=== PATIENT | female | born 1970 | race Caucasian/White ===

== ENCOUNTER 2018-05-15 20:04 | Emergency (ER) | payer BC ==
[~2018-05-15 20:04] MED LIST: DIAZ5TAB PO; HYDR-3165 PO
[2018-05-15 20:48] LABS: BASO % 1 % (0-3); EOS # 0.1 x10^3/uL (0.0-0.7); EOS % 2 % (0-3); HEMATOCRIT 47.6 % (36.0-47.0); HEMOGLOBIN 16.6 g/dL (12.0-15.5); LYMPH # 3.3 x10^3/uL (1.0-4.8); LYMPH % 58 % (24-48); MEAN CORPUSCULAR HEMOGLOBIN 31 pg (25-35); MEAN CORPUSCULAR HGB CONC 35 g/dL (31-37); MEAN CORPUSCULAR VOLUME 90 fL (79-100); MONO # 0.4 x10^3/uL (0.0-1.1); MONO % 7 % (0-9); NEUT # 1.8 x10^3uL (1.8-7.7); NEUT % 32 % (31-73); PLATELET COUNT 244 x10^3/uL (140-400); RED BLOOD COUNT 5.32 x10^6/uL (3.50-5.40); RED CELL DISTRIBUTION WIDTH 13.5 % (11.5-14.5); WHITE BLOOD COUNT 5.7 x10^3/uL (4.0-11.0)
--- NOTE | 2018-05-15 20:58 | RAD ---
PQRS Compliance statement: One or more of the following individualized dose reduction techniques were utilized for this examination: 1. Automated exposure control. 2. Adjustment of the mA and/or kV according to patient size. 3. Use of iterative reconstruction technique. Indication:Depressed mental status, weakness TECHNIQUE: CT head without IV contrast COMPARISON:None FINDINGS: No pathologic extra-axial or intra-axial fluid collection. The ventricles and basal cisterns are within normal limits. No acute intracranial bleed. No focal loss of suarez-white differentiation. Orbits are within normal limits. No suspicious calvarial lesion. Visualized paranasal sinuses and mastoid air cells are clear. IMPRESSION: No acute intracranial process on this noncontrast CT. If concern for acute ischemic stroke is high, please consider MRI brain. Electronically signed by: Alberto Rocha DO (05/15/2018 8:53 PM) [facility]
[2018-05-15 21:04] LABS: CALCIUM 8.6 mg/dL (8.5-10.1); CREATININE 0.7 mg/dL (0.6-1.0); GFR 108.1
--- NOTE | 2018-05-15 21:04 | RAD ---
PROCEDURE: CHEST AP ONLY CLINICAL INDICATION: Chest pain COMPARISON: None FINDINGS: No pneumothorax identified. Cardiac and mediastinal contours unremarkable. No pulmonary consolidation or acute airspace disease. No acute osseous abnormalities identified. IMPRESSION: No pulmonary consolidation or acute airspace disease. Electronically signed by: Alberto Rocha DO (05/15/2018 8:59 PM) [facility]
[2018-05-15 21:11] LABS: POTASSIUM 2.6 mmol/L (3.5-5.1)
[2018-05-15] MEDS: IV NORMAL SALINE 1,000ML 1,000 ML IV ONE (21:13)
--- NOTE | 2018-05-15 21:24 | ED.ADGEN ---
Past History Past Medical History: Diabetes, Hypertension Past Surgical History: No Surgical History Alcohol Use: Occasionally Drug Use: None Adult General HPI HPI Patient is a 47 year old female who presents with altered mental status. Patient was at home by herself. She apparently called some family members and reported she was having chest pain. When the family members went to check on her , the patient did not recognize them. She was also having conversations with some family members who have been read for several years. The patient reportedly did not recognize her sons. The episode lasted possibly one hour and then improved. On arrival to the ER, the patient returned to her baseline. There was no witnessed tonic-clonic activity and the patient does not have a prior history of seizures. Regarding her chest pain, she continues to complain of mild sternal chest pain on arrival to the ER. Pain is nonradiating. There are no aggravating or alleviating factors. It does not feel like pain she has had in the past. The patient does not have a prior history of coronary artery disease but she does have a history of tobacco use, diabetes, and hypertension. Review of Systems Review of Systems Constitutional: Denies fever or chills Eyes: Denies change in visual acuity HENT: Denies nasal congestion or sore throat Respiratory: Denies cough or shortness of breath Cardiovascular: No additional information not addressed in HPI GI: Denies abdominal pain, nausea, vomiting : Denies dysuria or hematuria Musculoskeletal: Denies back pain Integument: Denies rash Neurologic: c/o diffuse WHITT but no focal neuro complaints Endocrine: Denies polyuria or polydipsia All other systems were reviewed and found to be within normal limits, except as documented in this note. Current Medications Current Medications Current Medications Medications (Trade) Dose Ordered Sig/Nenita Start Time Stop Time Status Last Admin Dose Admin Acetaminophen (Tylenol) 650 mg PRN Q4HRS PRN 05/15/18 21:45 05/15/18 22:33 DC Aspirin (Willow Aspirin) 325 mg 1X ONCE 05/15/18 22:15 05/15/18 22:16 DC Nitroglycerin (Nitrostat) 0.4 mg PRN Q5MIN PRN 05/15/18 21:45 05/15/18 22:33 DC Ondansetron HCl (Zofran) 4 mg PRN Q4HRS PRN 05/15/18 21:45 05/15/18 22:33 DC Potassium Chloride (KCl Oral Soln) 40 meq 1X ONCE 05/15/18 21:30 05/15/18 21:31 DC 05/15/18 22:07 40 MEQ Sodium Chloride 1,000 ml @ 1,000 mls/hr 1X ONCE 05/15/18 21:15 05/15/18 22:14 DC 05/15/18 21:13 1,000 MLS/HR Allergies Allergies Allergies Coded Allergies Type Severity Reaction Last Updated Verified codeine Allergy Unknown 05/15/18 Yes hydrocodone Allergy Unknown 05/15/18 Yes Physical Exam Physical Exam Constitutional: Well developed, well nourished, no acute distress, non-toxic appearance HENT: Normocephalic, atraumatic, bilateral external ears normal, oropharynx moist, no oral exudates Eyes: PERRLA, EOMI, conjunctiva normal Neck: Normal range of motion, no tenderness, supple, no bruits heard Cardiovascular:Heart rate regular rhythm, no murmur Lungs & Thorax: Bilateral breath sounds clear to auscultation Abdomen: Bowel sounds normal, soft, no tenderness Skin: Warm, dry, no erythema, no rash Extremities: No tenderness, no edema Neurologic: Alert and oriented X 3, normal motor function, normal sensory function, no focal deficits noted Psychologic: Affect normal Current Patient Data Vital Signs Vital Signs Date Time Temp Pulse Resp B/P (MAP) Pulse Ox O2 Delivery O2 Flow Rate FiO2 05/15/18 20:12 97.9 95 22 100 Room Air Lab Results Laboratory Tests Test 05/15/18 20:13 05/15/18 20:25 05/15/18 21:14 05/15/18 21:36 Glucose (Fingerstick) 340 mg/dL (70-99) H White Blood Count 5.7 x10^3/uL (4.0-11.0) Red Blood Count 5.32 x10^6/uL (3.50-5.40) Hemoglobin 16.6 g/dL (12.0-15.5) H Hematocrit 47.6 % (36.0-47.0) H Mean Corpuscular Volume 90 fL (79-100) Mean Corpuscular Hemoglobin 31 pg (25-35) Mean Corpuscular Hemoglobin Concent 35 g/dL (31-37) Red Cell Distribution Width 13.5 % (11.5-14.5) Platelet Count 244 x10^3/uL (140-400) Neutrophils (%) (Auto) 32 % (31-73) Lymphocytes (%) (Auto) 58 % (24-48) H Monocytes (%) (Auto) 7 % (0-9) Eosinophils (%) (Auto) 2 % (0-3) Basophils (%) (Auto) 1 % (0-3) Neutrophils # (Auto) 1.8 x10^3uL (1.8-7.7) Lymphocytes # (Auto) 3.3 x10^3/uL (1.0-4.8) Monocytes # (Auto) 0.4 x10^3/uL (0.0-1.1) Eosinophils # (Auto) 0.1 x10^3/uL (0.0-0.7) Basophils # (Auto) 0.0 x10^3/uL (0.0-0.2) Sodium Level 143 mmol/L (136-145) Potassium Level 2.6 mmol/L (3.5-5.1) *L Chloride Level 101 mmol/L (98-107) Carbon Dioxide Level 32 mmol/L (21-32) Anion Gap 10 (6-14) Blood Urea Nitrogen 5 mg/dL (7-20) L Creatinine 0.7 mg/dL (0.6-1.0) Estimated GFR (Cockcroft-Gault) 108.1 Glucose Level 302 mg/dL (70-99) H Lactic Acid Level 1.7 mmol/L (0.4-2.0) Calcium Level 8.6 mg/dL (8.5-10.1) Creatine Kinase 79 U/L (26-192) Troponin I Quantitative < 0.017 ng/mL (0-0.055) WB-Pfz-I-Type Natriuretic Peptide 64 pg/mL (0-124) Ethyl Alcohol Level < 10 mg/dL (0-10) Urine Collection Type Unknown Urine Color Yellow Urine Clarity Clear Urine pH 7.0 Urine Specific Sherwood 1.020 Urine Protein Neg (NEG-TRACE) Urine Glucose (UA) 500 mg/dL (NEG) Urine Ketones (Stick) Neg mg/dL (NEG) Urine Blood Neg (NEG) Urine Nitrite Neg (NEG) Urine Bilirubin Neg (NEG) Urine Urobilinogen Dipstick 0.2 mg/dL (0.2 mg/dL) Urine Leukocyte Esterase Neg (NEG) Urine RBC 1-2 /HPF (0-2) Urine WBC 1-4 /HPF (0-4) Urine Squamous Epithelial Cells Few /LPF Urine Bacteria Few /HPF (0-FEW) Urine Mucus Slight /LPF Urine Opiates Screen Neg (NEG) Urine Methadone Screen Neg (NEG) Urine Barbiturates Neg (NEG) Urine Phencyclidine Screen Neg (NEG) Urine Amphetamine/Methamphetamine Neg (NEG) Urine Benzodiazepines Screen Pos (NEG) Urine Cocaine Screen Neg (NEG) Urine Cannabinoids Screen Pos (NEG) Urine Ethyl Alcohol Neg (NEG) Influenza Type A (Rapid) Negative (NEGATIVE) Influenza Type B (Rapid) Negative (NEGATIVE) EKG EKG No STEMI Radiology/Procedures Radiology/Procedures FINDINGS: No pathologic extra-axial or intra-axial fluid collection. The ventricles and basal cisterns are within normal limits. No acute intracranial bleed. No focal loss of suarez-white differentiation. Orbits are within normal limits. No suspicious calvarial lesion. Visualized paranasal sinuses and mastoid air cells are clear. IMPRESSION: No acute intracranial process on this noncontrast CT. If concern for acute ischemic stroke is high, please consider MRI brain. CXR: no acute findings Course & Med Decision Making Course & Med Decision Making Pertinent Labs and Imaging studies reviewed. (See chart for details) Patient is evaluated in the ER immediately on arrival to her room. She had some episode of altered mental status which has now improved. She does complain of mild chest pain. Her EKG is unremarkable. She has a nonfocal neurologic examination. Labs and imaging are ordered. 21:35: All results are reviewed. The patient is noted to have mildly depressed potassium levels. She was ordered to have by mouth replacement in the ER. Her EKG is normal. Her troponin is not elevated. The rest of her lab panel does not show acute abnormalities. Her CT scan is negative. Her chest x-ray is also negative. Given the patient's risk factors of high blood pressure, diabetes, tobacco use, decision is to admit this patient for chest pain observation. Uncertain why she had some period of depressed mental status. Her blood sugars were not reported to be low. In the ER, she is alert and oriented with a normal neuro exam and a negative head CT. Aspirin is given. Patient is agreeable to the plan of care including admission. 23:00: Patient is recommended for admission but the patient declines. Regarding her potassium, the patient states she does have his condition on a chronic basis and does take potassium at home. She is not on diuretic medications. I strongly encouraged the patient to remain in the hospital. I explained the risks of leaving including that she might have a myocardial infarction or or be partly disabled. I also explained the benefit of remaining in the hospital including that we could medically monitor her and repeat serial troponins and EKGs. The patient was awake and alert and not under the influence of any substances clinically. She was able to make decisions for herself. She was accompanied by family members who did also encourage her to stay but she declined. The patient signed AMA paperwork. She was advised to come back to this emergency department for any new or worsening symptoms. She states she will call her doctor in the morning for a follow-up appointment. Final Impression Final Impression Hypokalemia Chest Pain Altered Mental Status Kathy Disclaimer Dragwillie Disclaimer This electronic medical record was generated, in whole or in part, using a voice recognition dictation system. KARLI NAILS DO May 15, 2018 21:24
[2018-05-15 21:39] LABS: BILIRUBIN,URINE NEG (NEG); CLARITY,URINE CLEAR; COLOR,URINE YELLOW; GLUCOSE,URINE 500 mg/dL (NEG)
[2018-05-15 21:40] LABS: BACTERIA,URINE FEW /HPF (0-FEW); NITRITE,URINE NEG (NEG); SQUAMOUS EPITHELIAL CELL,UR FEW /LPF; UROBILINOGEN,URINE 0.2 mg/dL (0.2 mg/dL)
[2018-05-15 21:45] VITALS: BP 171/100
[2018-05-15] MEDS ORDERED: ACETAMINOPHEN 325 MG TABLET PO PRN (21:45)
[2018-05-15] MEDS ORDERED: NITROGLYCERIN SUBLINGUAL 0.4 MG BOTTLE OF 25. SL PRN (21:45)
[2018-05-15] MEDS ORDERED: ONDANSETRON PF 4 MG/2 ML VIAL. IV PRN (21:45)
[2018-05-15 21:47] LABS: BARBITURATES NEG (NEG); BENZODIAZEPINES POS (NEG); CANNABINOIDS POS (NEG); COCAINE NEG (NEG); METHADONE NEG (NEG); OPIATES NEG (NEG); PHENCYCLIDINE NEG (NEG)
[2018-05-15 21:48] LABS: AMPHETAMINE/METHAMPHETAMINE NEG (NEG)
[2018-05-15] MEDS: POTASSIUM CHLORIDE 20 MEQ/15 ML ORAL LIQUID. PO ONE (22:07)
[2018-05-15] MEDS: ASPIRIN 325 MG TABLET PO ONE (22:15)
[2018-05-15 22:17] LABS: INFLUENZA A PATIENT NEGATIVE (NEGATIVE); INFLUENZA B PATIENT NEGATIVE (NEGATIVE)
== END 2018-05-15 22:45 | disposition left against medical advice (07) ==
LOC: MERGE 20:04 → ER 20:04
DX: R41.82 Altered mental status, unspecified (principal); R07.2 Precordial pain; E87.6 Hypokalemia; E11.9 Type 2 diabetes mellitus without complications; I10 Essential (primary) hypertension; Z88.5 Allergy status to narcotic agent
CPT/HCPCS: 36415; 70450; 71045; 80048; 80307; 81001; 82550; 82947; 83605; 83880; 84484; 85025; 87804; 93005; 96360; 99284; G0480; J7030

== ENCOUNTER 2018-10-08 21:19 | Emergency (ER) | payer BC ==
[~2018-10-08] VITALS: Ht 144.8 cm; Wt 63.5 kg
[2018-10-08] MEDS ORDERED: PROCHLORPERAZINE 10 MG/2 ML VIAL. IV ONE (22:00)
[2018-10-08] MEDS ORDERED: diphenhydrAMINE 50 MG/ML VIAL IVP ONE (22:00)
[2018-10-08] MEDS ORDERED: METOCLOPRAMIDE HCL 10 MG/2 ML VIAL. IV ONE (22:00)
[2018-10-08] MEDS ORDERED: IV NORMAL SALINE 1,000ML 1,000 ML IV ONE (22:00)
[2018-10-08] MEDS ORDERED: KETOROLAC 15 MG/ML VIAL. IV ONE (23:00)
[2018-10-08] MEDS ORDERED: CYCL-331 PO (23:18)
[2018-10-08 23:20] VITALS: BP 161/74
--- NOTE | 2018-10-08 23:41 | ED.ADGEN ---
Past History Past Medical History: Diabetes, Hypertension Past Surgical History: Tubal ligation Smoking: Non-smoker Alcohol Use: Occasionally Drug Use: Benzodiazepine, Marijuana Adult General Chief Complaint Chief Complaint headache, neck pain HPI HPI Patient is a 48-year-old female with history of recurrent migraines resents with headache starting this morning. Patient reports neck pain/stiffness starting yesterday. This morning, the patient woke up with a headache. Headache is over cephalic. Is described as throbbing associated with nausea and light sensitivi ty. Patient vomited earlier today. Patient's currently takes Percocet for chronic knee pain. Patient states she took her usual allotment of Percocet without relief of headache. Denies fever chills, sweats, no rash. No sinus pain or congestion. Denies trauma. No history or family history of subarachnoid hemorrhage. Patient is not on anticoagulations therapy. No radicular symptoms, s trongly weakness or loss of sensation. No other acute symptoms or complaints.[] Review of Systems Review of Systems Review symptoms as per history of present illness. All other review symptoms are negative.[] All other systems were reviewed and found to be within normal limits, except as documented in this note. Current Medications Current Medications Current Medications Medications (Trade) Dose Ordered Sig/Nenita Start Time Stop Time Status Last Admin Dose Admin Diphenhydramine HCl (Benadryl) 25 mg 1X ONCE 10/08/18 22:00 10/08/18 22:01 DC 10/08/18 22:12 25 MG Ketorolac Tromethamine (Toradol 15mg Vial) 15 mg 1X ONCE 10/08/18 23:00 10/08/18 23:01 DC 10/08/18 22:54 15 MG Lorazepam (Ativan Inj) 1 mg 1X ONCE 10/08/18 23:00 10/08/18 23:01 DC 10/08/18 22:54 1 MG Metoclopramide HCl (Reglan Vial) 10 mg 1X ONCE 10/08/18 22:00 10/08/18 22:01 DC 10/08/18 22:12 10 MG Prochlorperazine Edisylate (Compazine) 10 mg 1X ONCE 10/08/18 22:00 10/08/18 22:01 DC 10/08/18 22:12 10 MG Sodium Chloride 1,000 ml @ 1,000 mls/hr 1X ONCE 10/08/18 22:00 10/08/18 22:59 DC 10/08/18 22:12 1,000 MLS/HR Allergies Allergies Allergies Coded Allergies Type Severity Reaction Last Updated Verified codeine Allergy Unknown 05/16/18 Yes hydrocodone Allergy Unknown 05/16/18 Yes Physical Exam Physical Exam Constitutional: Well developed, well nourished, no acute distress, non-toxic appearance. [] HENT: Normocephalic, atraumatic, bilateral external ears normal, oropharynx moist, no oral exudates, nose normal. [] Eyes: PER, EOMI, conjunctiva normal, no discharge. [] Neck: Normal range of motion, paracervical muscle pain, no stiffness or rigidity.. [] Cardiovascular:Heart rate regular rhythm, no murmur [] Lungs & Thorax: Bilateral breath sounds clear to auscultation [] Extremities: No tenderness, no cyanosis, no clubbing, ROM intact, no edema. [] Neurologic: Alert and oriented X 3, cranial nerves II through XII grossly intact, normal motor function, normal sensory function, no focal deficits noted. [] Psychologic: Affect normal, judgement normal, mood normal. [] Current Patient Data Vital Signs Vital Signs Date Time Temp Pulse Resp B/P (MAP) Pulse Ox O2 Delivery O2 Flow Rate FiO2 10/08/18 21:29 97.9 69 16 99 Room Air EKG EKG [] Radiology/Procedures Radiology/Procedures [] Course & Med Decision Making Course & Med Decision Making Pertinent Labs and Imaging studies reviewed. (See chart for details) [Neck pain with secondary headache. No focal neurologic deficits. This is not the worst headache the patient's life. Symptoms resolved with treatment. Recommend port of care with PCP follow-up. Return precautions reviewed. Final Impression Final Impression [] Dragon Disclaimer Dragon Disclaimer This electronic medical record was generated, in whole or in part, using a voice recognition dictation system. GUERRERO FIGUEROA DO Oct 08, 2018 23:41
== END 2018-10-08 23:30 | disposition home or self-care (01) ==
LOC: ER 21:19
DX: M54.2 Cervicalgia (principal); R51 Headache; R11.2 Nausea with vomiting, unspecified; E11.9 Type 2 diabetes mellitus without complications; I10 Essential (primary) hypertension; Z88.5 Allergy status to narcotic agent
CPT/HCPCS: 96361; 96374; 96375; 99284; J0780; J1200; J1885; J2060; J2765; J7030

== ENCOUNTER 2018-11-23 05:56 | Inpatient (IN) | payer BC ==
[~2018-11-23] VITALS: Ht 149.9 cm; Wt 64.9 kg
[~2018-11-23 05:56] MED LIST changes: +CYCL-331 PO
--- NOTE | 2018-11-23 06:22 | PHYS DOC ---
Past History Past Medical History: Diabetes, Hypertension Past Surgical History: Tubal ligation Smoking: Non-smoker Alcohol Use: Occasionally Drug Use: Benzodiazepine, Marijuana Adult General Chief Complaint Chief Complaint: CHEST PAIN HPI HPI 48-year-old female presents with chest pain. This started about 45 minutes ago. The patient was feeling normal when she woke up this morning. She got ready for work and while she was driving to work, the pain started. She describes it as a central, sharp chest pain that is 7 out of 10. It does not radiate. Nothing seems to make it better or worse. She denies nausea, abdominal pain, shortness of breath or diaphoresis. The patient has not had pain like this before. She has high blood pressure and diabetes. No cardiac history. Review of Systems Review of Systems Constitutional: Denies fever or chills [] Eyes: Denies change in visual acuity, redness, or eye pain [] HENT: Denies nasal congestion or sore throat [] Respiratory: Denies cough or shortness of breath [] Cardiovascular: No additional information not addressed in HPI [] GI: Denies abdominal pain, nausea, vomiting, bloody stools or diarrhea [] : Denies dysuria or hematuria [] Musculoskeletal: Denies back pain or joint pain [] Integument: Denies rash or skin lesions [] Neurologic: Denies headache, focal weakness or sensory changes [] Endocrine: Denies polyuria or polydipsia [] All other systems were reviewed and found to be within normal limits, except as documented in this note. Current Medications Current Medications Current Medications Medications (Trade) Dose Ordered Sig/[facility] Start Time Stop Time Status Last Admin Dose Admin Aspirin (Children'S Aspirin) 324 mg 1X ONCE 11/23/18 06:15 11/23/18 06:16 UNV Allergies Allergies Allergies Coded Allergies Type Severity Reaction Last Updated Verified codeine Allergy Unknown 05/16/18 Yes hydrocodone Allergy Unknown 05/16/18 Yes Physical Exam Physical Exam Constitutional: Well developed, well nourished, no acute distress, non-toxic appearance. [] HENT: Normocephalic, atraumatic, bilateral external ears normal, oropharynx moist, no oral exudates, nose normal. [] Eyes: PERRLA, EOMI, conjunctiva normal, no discharge. [] Neck: Normal range of motion, no tenderness, supple, no stridor. [] Cardiovascular:Heart rate regular rhythm, no murmur [] Lungs & Thorax: Bilateral breath sounds clear to auscultation [] Abdomen: Bowel sounds normal, soft, no tenderness, no masses, no pulsatile masses. [] Skin: Warm, dry, no erythema, no rash. [] Back: No tenderness, no CVA tenderness. [] Extremities: No tenderness, no cyanosis, no clubbing, ROM intact, no edema. [] Neurologic: Alert and oriented X 3, normal motor function, normal sensory function, no focal deficits noted. [] Psychologic: Affect normal, judgement normal, mood normal. [] EKG EKG Sinus rhythm, rate 73, leftward axis, no ST elevations or depressions[] Radiology/Procedures Radiology/Procedures [] Impressions: Chest x-ray preliminary interpretation: No acute cardiopulmonary finding. Course & Med Decision Making Course & Med Decision Making Pertinent Labs and Imaging studies reviewed. (See chart for details) The patient's chest x-ray is unremarkable. Her EKG significant only for prolonged QTC of 516. No ST elevations or depressions. The patient was given aspirin and nitroglycerin in the ED. After her first nitroglycerin her pain from a 7 to a 5. She was given an additional 2 doses for a total of 3, and her pain went to a 1. She did develop a small headache. Her labs are significant for a low potassium of 3.2 and an elevated sugar of 318. Her anion gap is normal. We will give her 1 L normal saline and 40 mEq of potassium by mouth. Given the patient's story of pain that is improved significantly with nitroglycerin, I have rated it as highly suspicious. Her overall heart score is a 4. I discussed all these symptoms and findings with the patient. I have advised that she should be admitted to the hospital for rule out. She is in agreement with this plan. I discussed the patient with Dr. Skelton and he has accepted her for admission. [] Kathy Disclaimer Dragon Disclaimer This electronic medical record was generated, in whole or in part, using a voice recognition dictation system. The HEART Score for CP Pts HEART Score for Chest Pain: HEART Score for Chest Pain Response (Comments) Value History Highly Suspicious 2 ECG Normal 0 Age >45 - < 65 1 Risk Factors 1 or 2 Risk Factors 1 Troponin < Normal Limit 0 Total 4 Risk Factors: Risk Factors: DM, Current or recent (<one month) smoker, HTN, HLP, family history of CAD, obesity. Risk Scores: Score 0 - 3: 2.5% MACE over next 6 weeks - Discharge Home Score 4 - 6: 20.3% MACE over next 6 weeks - Admit for Clinical Observation Score 7 - 10: 72.7% MACE over next 6 weeks - Early Invasive Strategies Departure Departure: Impression: Primary Impression: Chest pain Additional Impressions: Hyperglycemia Hypokalemia Disposition: ADMITTED INPATIENT Admitting Physician: Estefania Skelton Condition: STABLE Referrals: JOHN CHASE MD (PCP) Problem Qualifiers Primary Impression: Chest pain Chest pain type: precordial pain Qualified Codes: R07.2 - Precordial pain GUERRERO AG DO Nov 23, 2018 06:22
[2018-11-23] MEDS ORDERED: ASPIRIN 81 MG TAB.CHEW PO ONE (06:30)
[2018-11-23] MEDS ORDERED: NITROGLYCERIN SUBLINGUAL 0.4 MG BOTTLE OF 25. SL ONE (06:30)
[2018-11-23 06:46] LABS: BASO % 1 % (0-3); EOS # 0.1 x10^3/uL (0.0-0.7); EOS % 3 % (0-3); HEMATOCRIT 44.5 % (36.0-47.0); HEMOGLOBIN 15.4 g/dL (12.0-15.5); LYMPH # 2.5 x10^3/uL (1.0-4.8); LYMPH % 45 % (24-48); MEAN CORPUSCULAR HEMOGLOBIN 31 pg (25-35); MEAN CORPUSCULAR HGB CONC 35 g/dL (31-37); MEAN CORPUSCULAR VOLUME 90 fL (79-100); MONO # 0.3 x10^3/uL (0.0-1.1); MONO % 6 % (0-9); NEUT # 2.5 x10^3uL (1.8-7.7); NEUT % 45 % (31-73); PLATELET COUNT 246 x10^3/uL (140-400); RED BLOOD COUNT 4.93 x10^6/uL (3.50-5.40); RED CELL DISTRIBUTION WIDTH 12.6 % (11.5-14.5); WHITE BLOOD COUNT 5.5 x10^3/uL (4.0-11.0)
[2018-11-23 06:57] LABS: ALBUMIN 3.5 g/dL (3.4-5.0); CALCIUM 8.6 mg/dL (8.5-10.1); CREATININE 0.7 mg/dL (0.6-1.0); GFR 88.9; POTASSIUM 3.2 mmol/L (3.5-5.1); TOTAL BILIRUBIN 0.3 mg/dL (0.2-1.0)
--- NOTE | 2018-11-23 07:01 | EKG ---
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
[2018-11-23] MEDS ORDERED: IV NORMAL SALINE 1,000ML 1,000 ML IV ONE (07:15)
[2018-11-23] MEDS ORDERED: NITROGLYCERIN SUBLINGUAL 0.4 MG BOTTLE OF 25. SL PRN (07:45)
[2018-11-23] MEDS ORDERED: POTASSIUM CHLORIDE 20 MEQ TABLET.ER. PO ONE (08:00)
--- NOTE | 2018-11-23 08:11 | RAD ---
Examination: PORTABLE CHEST 1V History: Chest pain Comparison/Correlation: 05/07/2018 AP view of the chest Findings: Portable upright frontal view chest was obtained. Heart size and pulmonary vasculature are normal. No infiltrate or pleural effusion. No pneumothorax. Bony structures are unremarkable. Right upper quadrant surgical clips are present. Impression: No active disease. Electronically signed by: Gonzalo Sams MD (11/23/2018 8:08 AM) [facility]
--- NOTE | 2018-11-23 08:16 | PDOC2 ---
CARDIAC CONSULT DATE OF CONSULT Date Of Consult DATE: 11/23/18 TIME: 08:12 REASON FOR CONSULT Reason for Consult Chest pain REFERRING PHYSICIAN Referring Physician Dr. Skelton SOURCE Source: Chart review, Patient HPI History of Present Illness This is a 48 yo female who presented secondary to chest pain. Patient reports she was on her way to work this morning and began having intermittent stabbing pain in her central chest. No associated dizziness, shortness of breath, palpitations, diaphoresis, or nausea/vomiting. No specific worsening factors. Pain continued intermittently so she came to the ED for further evaluation and treatment. Pain seemed to improve with nitro and ASA in ED. No prior history of CAD. Does have a history of hypertension and diabetes. PAST MEDICAL HISTORY Cardiovascular: HTN Musculoskeletal: Osteoarthritis Endocrine: Diabetes PAST SURGICAL HISTORY Past Surgical History: Appendectomy, Tubal Ligation, Hysterectomy FAMILY HISTORY Family History: Diabetes, Heart Disease, Hypertension SOCIAL HISTORY Smoke: <1 pack per day ALCOHOL: none Drugs: None Lives: with Family CURRENT MEDICATIONS Current Medications Current Medications Aspirin (Children'S Aspirin) 324 mg 1X ONCE PO Last administered on 11/23/18at 06:37; Start 11/23/18 at 06:30; Stop 11/23/18 at 06:31; Status DC Nitroglycerin (Nitrostat) 0.4 mg 1X ONCE SL Last administered on 11/23/18at 06:37; Start 11/23/18 at 06:30; Stop 11/23/18 at 06:31; Status DC Sodium Chloride 1,000 ml @ 1,000 mls/hr 1X ONCE IV Last administered on 11/23/18at 07:31; Start 11/23/18 at 07:15; Stop 11/23/18 at 08:14 Potassium Chloride (Klor-Con) 40 meq 1X ONCE PO Last administered on 11/23/18at 07:47; Start 11/23/18 at 08:00; Stop 11/23/18 at 08:01; Status DC Nitroglycerin (Nitrostat) 0.4 mg PRN Q5MIN PRN SL CHEST PAIN; Start 11/23/18 at 07:45; Stop 11/24/18 at 07:44 Active Scripts Active Cyclobenzaprine Hcl 10 Mg Tablet 1 Tab PO TID Valium (Diazepam) 5 Mg Tablet 5 Mg PO TID PRN [place] 5-325 Tablet (Hydrocodone Bit/Acetaminophen) 1 Each Tablet 1-2 Tab PO PRN Q6HRS PRN ALLERGIES Allergies: Coded Allergies: codeine (Verified Allergy, Unknown, 05/16/18) hydrocodone (Verified Allergy, Unknown, 05/16/18) ROS Review of Systems 14 point ROS conducted with pertinent positives noted above in HPI. PHYSICAL EXAM General: Alert, Oriented X3, Cooperative, No acute distress HEENT: Atraumatic, Mucous membr. moist/pink Lungs: Clear to auscultation, Normal air movement Heart: Regular rate, Normal S1, Normal S2, No murmurs Abdomen: Soft, No tenderness Extremities: No edema, Normal pulses Skin: No breakdown Neuro: Normal speech, Sensation intact Psych/Mental Status: Mental status NL, Mood NL MUSCULOSKELETAL: No deformity VITALS Vital Signs Vital Signs Date Time Temp Pulse Resp B/P (MAP) Pulse Ox O2 Delivery O2 Flow Rate FiO2 11/23/18 07:58 72 18 150/71 (97) 100 11/23/18 07:15 Room Air 11/23/18 05:57 98.1 LABS LABS Laboratory Tests Test 11/23/18 06:25 White Blood Count 5.5 x10^3/uL (4.0-11.0) Red Blood Count 4.93 x10^6/uL (3.50-5.40) Hemoglobin 15.4 g/dL (12.0-15.5) Hematocrit 44.5 % (36.0-47.0) Mean Corpuscular Volume 90 fL (79-100) Mean Corpuscular Hemoglobin 31 pg (25-35) Mean Corpuscular Hemoglobin Concent 35 g/dL (31-37) Red Cell Distribution Width 12.6 % (11.5-14.5) Platelet Count 246 x10^3/uL (140-400) Neutrophils (%) (Auto) 45 % (31-73) Lymphocytes (%) (Auto) 45 % (24-48) Monocytes (%) (Auto) 6 % (0-9) Eosinophils (%) (Auto) 3 % (0-3) Basophils (%) (Auto) 1 % (0-3) Neutrophils # (Auto) 2.5 x10^3uL (1.8-7.7) Lymphocytes # (Auto) 2.5 x10^3/uL (1.0-4.8) Monocytes # (Auto) 0.3 x10^3/uL (0.0-1.1) Eosinophils # (Auto) 0.1 x10^3/uL (0.0-0.7) Basophils # (Auto) 0.0 x10^3/uL (0.0-0.2) Sodium Level 141 mmol/L (136-145) Potassium Level 3.2 mmol/L (3.5-5.1) Chloride Level 102 mmol/L (98-107) Carbon Dioxide Level 33 mmol/L (21-32) Anion Gap 6 (6-14) Blood Urea Nitrogen 10 mg/dL (7-20) Creatinine 0.7 mg/dL (0.6-1.0) Estimated GFR (Cockcroft-Gault) 88.9 BUN/Creatinine Ratio 14 (6-20) Glucose Level 318 mg/dL (70-99) Calcium Level 8.6 mg/dL (8.5-10.1) Total Bilirubin 0.3 mg/dL (0.2-1.0) Aspartate Amino Transf (AST/SGOT) 11 U/L (15-37) Alanine Aminotransferase (ALT/SGPT) 18 U/L (14-59) Alkaline Phosphatase 80 U/L (46-116) Troponin I Quantitative < 0.017 ng/mL (0-0.055) Total Protein 7.0 g/dL (6.4-8.2) Albumin 3.5 g/dL (3.4-5.0) Albumin/Globulin Ratio 1.0 (1.0-1.7) ASSESSMENT/PLAN Assessment/Plan 1. Chest pain, atypical. Initial troponin negative. EKG without significant acute changes 2. Hypertension; mildly elevated 3. Diabetes, II 4. Hypokalemia; replaced Recommendations Lipids Trend troponin Echo to assess LV systolic function Consider outpatient stress test if above unrevealing. ANN ROAMNO APRN Nov 23, 2018 08:16
[2018-11-23 08:33] VITALS: BP 173/93
[2018-11-23] MEDS ORDERED: MAGNESIUM SULFATE 2GM 50 ML IV ONE (09:45)
[2018-11-23 11:25] VITALS: BP 193/95
[2018-11-23] MEDS ORDERED: METO50TA4 PO (11:38)
[2018-11-23] MEDS ORDERED: METF10007 PO (11:38)
[2018-11-23] MEDS ORDERED: METOPROLOL SUCC 24HR ER 50 MG TAB.ER.24H. PO SCH (11:45)
[2018-11-23] MEDS ORDERED: metFORMIN 500 MG TABLET PO SCH (11:45)
--- NOTE | 2018-11-23 13:39 | CARD ---
MR#: [id number] Date of Study: 11/23/2018 Ordering Physician: ANN ROMANO, Referring Physician: JEREMIAH PICHARDO, Tech: Ruthy Gibbs APPROVED REPORT EXAM: Two-dimensional and M-mode echocardiogram with Doppler and color Doppler. Other Information Quality : AverageHR: 73bpm INDICATION Chest Pain RISK FACTORS Hypertension Diabetes Smoking 2D DIMENSIONS RVDd3.0 (2.9-3.5cm)Left Atrium(2D)3.4 (1.6-4.0cm) IVSd0.9 (0.7-1.1cm)Aortic Root(2D)2.5 (2.0-3.7cm) LVDd4.7 (3.9-5.9cm)LVOT Diameter1.9 (1.8-2.4cm) PWd0.9 (0.7-1.1cm)LVDs3.5 (2.5-4.0cm) FS (%) 25.6 %SV52.5 ml LVEF(%)50.4 (>50%) Aortic Valve AoV Peak Toño.115.3cm/sAoV VTI25.8cm AO Peak GR.5.3mmHgLVOT Peak Toño.82.2cm/s LVOT VTI 20.09cmAO Mean GR.3mmHg CEM (VMAX)2.92gb0PCC (VTI)2.30cm2 Mitral Valve MV E Jelegxuu81.1cm/sMV DECEL [id number] MV A Faxygiss55.6cm/sE/A Ratio0.8 Pulmonary Valve PV Peak Xcedjflj17.9cm/sPV Peak Grad.4mmHg Tricuspid Valve TR P. Wupwioja652qf/sRAP [id number] TR Peak Gr.52ykBhDRDQ07glKc Pulmonary Vein S1 Cgiprbnh54.1cm/sD2 Rkkxmkvp68.5cm/s LEFT VENTRICLE The left ventricle is normal size. There is normal left ventricular wall thickness. The left ventricu lar systolic function is normal and the ejection fraction is within normal range. The Ejection Fracti on is 50-55%. There is normal LV segmental wall motion. Transmitral Doppler flow pattern is Grade I-a bnormal relaxation pattern. RIGHT VENTRICLE The right ventricle is normal size. There is normal right ventricular wall thickness. The right ventr icular systolic function is normal. ATRIA The left atrium size is normal. The right atrium size is normal. The interatrial septum is intact wit h no evidence for an atrial septal defect or patent foramen ovale as noted on 2-D or Doppler imaging. AORTIC VALVE The aortic valve is normal in structure and function. Doppler and Color Flow revealed no significant aortic regurgitation. There is no significant aortic valvular stenosis. MITRAL VALVE The mitral valve is normal in structure and function. There is no evidence of mitral valve prolapse. There is no mitral valve stenosis. Doppler and Color-flow revealed trace mitral regurgitation. TRICUSPID VALVE The tricuspid valve is normal in structure and function. Doppler and Color Flow revealed trace tricus pid regurgitation with an estimated PAP of 25 mmHg. There is no tricuspid valve prolapse or vegetatio n. There is no tricuspid valve stenosis. PULMONIC VALVE The pulmonary valve is normal in structure and function. Doppler and Color Flow revealed trace pulmon ic valvular regurgitation. There is no pulmonic valvular stenosis. GREAT VESSELS The aortic root is normal in size. The IVC is normal in size and collapses >50% with inspiration. PERICARDIAL EFFUSION There is no evidence of significant pericardial effusion. Critical Notification Critical Value: No <Conclusion> The left ventricular systolic function is normal and the ejection fraction is within normal range. Th e Ejection Fraction is 50-55%. There is normal LV segmental wall motion. Signed by : Agustin Hawkins, Electronically Approved : 11/23/2018 13:39:28
[2018-11-23 13:51] VITALS: BP 178/94
[2018-11-23] MEDS ORDERED: HYDR-52 PO (16:19)
--- NOTE | 2018-11-23 19:34 | SSS ---
ADMIT DATE: 11/23/2018 HISTORY OF PRESENT ILLNESS: The patient is a 48-year-old -[place] female patient who came to the Emergency Room complaining of chest pain that started about 45 minutes prior to arrival. She was normal when she woke up the morning of admission, she got ready for work and while she was driving to work, her pain started, she described it is as central sharp chest pain, 7/10 in severity, does not radiate. Nothing seems to make it better or worse. She denied any nausea or vomiting. Denied any shortness of breath, no diaphoresis. She has never had pain like this before. She is known to have high blood pressure and diabetes. 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 She was evaluated in the Emergency Room and her first set of cardiac enzymes showed troponin to be less than 0.017 and the patient was admitted and has 2 more sets of cardiac enzymes. She was seen by the Cardiology team and apparently has had an echocardiogram, which showed that her left ventricular systolic function is normal, her ejection fraction is within normal range. The ejection fraction is 50-55%. There is normal left ventricular segmental wall motion and the patient was discharged to follow with the Cardiology team for outpatient stress test. PAST MEDICAL HISTORY: Significant for type 2 diabetes, hypertension, severe osteoarthritis of the right knee. PAST SURGICAL HISTORY: Significant for tubal ligation, total abdominal hysterectomy, bilateral salpingo-oophorectomy. She has also appendectomy. ALLERGIES: SHE is allergic to CODEINE, HYDROCHLOROTHIAZIDE. Although, from another provider, she said she is allergic to HYDROCODONE. MEDICATIONS: She is currently on following medications: She is on metoprolol succinate 50 mg once a day, hydrocodone/APAP 5/325 one tablet every 6 hours as needed, metformin 1000 mg twice a day. FAMILY HISTORY: She has one brother who is younger, but healthy. Her father at age of 67 because of complication of diabetes, has myocardial infarction and COPD. Mother also in her 60s and has rheumatoid arthritis and bowel perforation. SOCIAL HISTORY: She is , has 5 sons and 2 daughters. She smokes 4-5 cigarettes. She does not drink alcohol or use any recreational drugs. REVIEW OF SYSTEMS: As per history of present illness. PHYSICAL EXAMINATION: GENERAL: On examining her, she was sitting at the edge of the bed comfortably in no apparent respiratory distress. No pallor, jaundice, cyanosis or thyromegaly. No jugular venous distention. No limb edema. VITAL SIGNS: Her heart rate was 69, blood pressure was 178/94, temperature was 98, respiratory rate was 20, and oxygen saturation was 95% on room air. HEENT: Normocephalic, atraumatic. NECK: Supple. HEART: Showed normal first and second heart sounds with no gallop, rub or murmur. CHEST: Clear to auscultation. No crepitation, rhonchi. ABDOMEN: Distended, soft, nontender. No guarding or rigidity. No organomegaly. All hernial orifice intact. Bowel sounds normal. NEUROLOGICAL: She was awake, alert, responding appropriately. All her cranial nerves intact. EXTREMITIES: She moves extremities without difficulty. She ambulates without assistance or assistive devices. LABORATORY DATA: Her labs on admission showed her serum sodium was 141, potassium 3.2, chloride 102, bicarbonate 33, anion gap of 6, BUN 10, creatinine 0.7, estimated GFR was 88 mL per minute. Her glucose was 318, calcium was 8.6. Total bilirubin, AST, ALT, alkaline phosphatase were normal. Her total protein was 7, albumin was 3.5. Her white cell count was 5500, hemoglobin 15, hematocrit 45, MCV 90, and platelet count 246,000 with normal manual differential. She had had chest x-ray, which showed that the heart size and pulmonary vasculature are normal. No infiltrate or pleural effusion, no pneumothorax. Bony structures are unremarkable. Right upper quadrant surgical clips are present. The patient was discharged home to continue on her metformin 1000 mg twice a day, metoprolol succinate 50 mg once a day and hydrocodone/APAP ____ one tablet as needed. FINAL DISCHARGE DIAGNOSES: Chest pain, myocardial infarction was ruled out. Hypokalemia, resolved. Type 2 diabetes, hypertension, nicotine dependence. JEREMIAH PICHARDO MD DR: VIVIANA/annie JOB#: [id number] / [id number]
== END 2018-11-23 16:40 | disposition home or self-care (01) | DRG 313 ==
LOC: ER 05:56 → 1 SOUTH 07:44
PROVIDERS: ADMIT Internal Medicine; ATTEND Internal Medicine
DX: R07.89 Other chest pain (principal); E11.65 Type 2 diabetes mellitus with hyperglycemia; E87.6 Hypokalemia; F17.210 Nicotine dependence, cigarettes, uncomplicated; I10 Essential (primary) hypertension; M19.90 Unspecified osteoarthritis, unspecified site; M17.11 Unilateral primary osteoarthritis, right knee; Z82.49 Family history of ischemic heart disease and other diseases of the circulatory system; Z82.5 Family history of asthma and other chronic lower respiratory diseases; Z90.710 Acquired absence of both cervix and uterus; Z83.3 Family history of diabetes mellitus; Z98.51 Tubal ligation status; Z88.8 Allergy status to other drugs, medicaments and biological substances; Z90.722 Acquired absence of ovaries, bilateral
CPT/HCPCS: 36415; 71045; 80053; 80061; 82947; 83735; 84443; 84484; 85025; 93005; 93306; 96360; 99406; J3475; 99285-25; J7030

== ENCOUNTER 2019-02-20 19:02 | Emergency (ER) | payer BC ==
[~2019-02-20] VITALS: Ht 144.8 cm; Wt 63.5 kg
[~2019-02-20 19:02] MED LIST changes: +HYDR-52 PO; +METF10007 PO; +METO50TA4 PO
[2019-02-20 19:16] VITALS: BP 128/83
[2019-02-20] MEDS ORDERED: ONDANSETRON PF 4 MG/2 ML VIAL. IVP ONE (20:15)
[2019-02-20] MEDS ORDERED: IV NORMAL SALINE 1,000ML 1,000 ML IV ONE (20:15)
[2019-02-20] MEDS ORDERED: KETOROLAC 15 MG/ML VIAL. IVP ONE (20:15)
[2019-02-20] MEDS ORDERED: FAMOTIDINE 20 MG/2 ML VIAL IVP ONE (20:15)
[2019-02-20] MEDS ORDERED: ONDA4TAB12 PO (20:41)
[2019-02-20] MEDS ORDERED: FAMO-63 PO (20:41)
--- NOTE | 2019-02-20 20:42 | PHYS DOC ---
Past History Past Medical History: Diabetes, Hypertension Past Surgical History: Appendectomy, Hysterectomy, Tubal ligation Smoking: Non-smoker Alcohol Use: None Drug Use: None Adult General Chief Complaint Chief Complaint: ABDOMINAL PAIN HPI HPI 48-year-old female presents with report of abdominal pain with associated nausea and vomiting that started this morning. Patient reports some discomfort to epigastric region. 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 Denies fever or chills. Denies trauma. Review of Systems Review of Systems Constitutional: Denies fever or chills; reports malaise Eyes: Denies redness or eye pain HENT: Denies nasal congestion or sore throat Respiratory: Denies cough or shortness of breath Cardiovascular: Denies chest pain or palpitations GI: Reports abdominal pain, nausea, and vomiting : Denies dysuria or hematuria Musculoskeletal: Denies back pain or joint pain Integument: Denies rash or skin lesions Neurologic: Denies headache, focal weakness or sensory changes Complete systems were reviewed and found to be within normal limits, except as documented in this note. Current Medications Current Medications Current Medications Medications (Trade) Dose Ordered Sig/Nenita Start Time Stop Time Status Last Admin Dose Admin Famotidine (Pepcid Vial) 20 mg 1X ONCE 02/20/19 20:15 02/20/19 20:17 DC Ketorolac Tromethamine (Toradol 15mg Vial) 15 mg 1X ONCE 02/20/19 20:15 02/20/19 20:17 DC Ondansetron HCl (Zofran) 4 mg 1X ONCE 02/20/19 20:15 02/20/19 20:17 DC Sodium Chloride 1,000 ml @ 1,000 mls/hr 1X ONCE 02/20/19 20:15 02/20/19 21:14 Allergies Allergies Allergies Coded Allergies Type Severity Reaction Last Updated Verified codeine Allergy Unknown 05/16/18 Yes hydrocodone Allergy Unknown 05/16/18 Yes Physical Exam Physical Exam Constitutional: Well developed, well nourished, no acute distress, non-toxic appearance HENT: Normocephalic, atraumatic, oropharynx moist Eyes: Conjunctiva normal, no discharge Neck: Normal range of motion, no tenderness, supple Cardiovascular: Heart rate normal, regular rhythm Lungs & Thorax: Bilateral breath sounds clear to auscultation, no wheezing Abdomen: Soft, mild epigastric tenderness, no guarding/rebound tenderness/distention Skin: Warm, dry, no erythema, no rash Back: No tenderness, no CVA tenderness Extremities: No tenderness, ROM intact, no edema Neurologic: Alert and oriented X 3, no focal deficits noted Psychologic: Affect normal, judgement normal Current Patient Data Vital Signs Vital Signs Date Time Temp Pulse Resp B/P (MAP) Pulse Ox O2 Delivery O2 Flow Rate FiO2 02/20/19 19:16 98.4 96 18 96 Room Air EKG EKG @2006 NSR at 74bpm, NO ST elevation, QRS 80ms, QT/QTc 360/404ms Radiology/Procedures Radiology/Procedures [] Course & Med Decision Making Course & Med Decision Making Pertinent Labs and Imaging studies reviewed. (See chart for details) Patient presents with epigastric abdominal pain with associated nausea and vomiting which started upon waking this morning. Abdomen non-peritoneal. Sy mptomatic treatment provided. IV fluid hydration given. Labs obtained and posted to chart. Hypokalemia and hypomagnesemia addressed. Patient offered admission for further evaluation and treatment. Patient reports she feels well enough and requests to be discharged home. Patient stable for discharge with outpatient follow-up with PCP. Discussed findings and plan with patient, who acknowledges understanding and agreement. Dragon Disclaimer Dragon Disclaimer This electronic medical record was generated, in whole or in part, using a voice recognition dictation system. Departure Departure: Impression: Primary Impression: Epigastric abdominal pain Additional Impressions: Nausea and vomiting Hypokalemia Hypomagnesemia Disposition: 01 HOME, SELF-CARE Condition: IMPROVED Referrals: JOHN CHASE MD (PCP) LAZARA ELLIOTT MD Patient Instructions: Abdominal Pain (Nonspecific), Hypokalemia, Hypomagnesemia, Nausea and Vomiting, [id number]-Ildf Scripts Potassium Chloride (POTASSIUM CHLORIDE) 20 Meq Tablet.er 1 TAB PO DAILY for Hypokalemia, #20 TAB 0 Refills Prov: BEVERLEY MARTINEZ DO 02/20/19 Famotidine (PEPCID) 20 Mg Tablet 1 TAB PO BID for Gastritis, #20 TAB Prov: BEVERLEY MARTINEZ DO 02/20/19 Ondansetron (ONDANSETRON ODT) 4 Mg Tab.rapdis 1 TAB PO PRN Q6-8HRS PRN for NAUSEA, #16 TAB Prov: BEVERLEY MARTINEZ DO 02/20/19 Problem Qualifiers Additional Impressions: Nausea and vomiting Vomiting type: unspecified Vomiting Intractability: non-intractable Qualified Codes: R11.2 - Nausea with vomiting, unspecified BEVERLEY MARTINEZ DO Feb 20, 2019 20:41
[2019-02-20 20:53] LABS: BILIRUBIN,URINE NEG (NEG); CLARITY,URINE HAZY; COLOR,URINE YELLOW; GLUCOSE,URINE >=1000 mg/dL (NEG)
[2019-02-20 20:54] LABS: NITRITE,URINE NEG (NEG); UROBILINOGEN,URINE 0.2 mg/dL (0.2 mg/dL)
[2019-02-20 20:55] LABS: AMORPHOUS SEDIMENT,UR PRESENT /HPF; BACTERIA,URINE 0 /HPF (0-FEW); GRANULAR CASTS,URINE FEW /HPF; HYALINE CASTS, URINE OCC /HPF; SQUAMOUS EPITHELIAL CELL,UR OCC /LPF; WAXY CASTS,URINE OCC /HPF
[2019-02-20 21:19] LABS: BASO % 1 % (0-3); EOS # 0.1 x10^3/uL (0.0-0.7); EOS % 1 % (0-3); HEMATOCRIT 47.5 % (36.0-47.0); HEMOGLOBIN 16.4 g/dL (12.0-15.5); LYMPH # 3.7 x10^3/uL (1.0-4.8); LYMPH % 50 % (24-48); MEAN CORPUSCULAR HEMOGLOBIN 31 pg (25-35); MEAN CORPUSCULAR HGB CONC 35 g/dL (31-37); MEAN CORPUSCULAR VOLUME 90 fL (79-100); MONO # 0.5 x10^3/uL (0.0-1.1); MONO % 7 % (0-9); NEUT % 41 % (31-73); PLATELET COUNT 262 x10^3/uL (140-400); RED BLOOD COUNT 5.27 x10^6/uL (3.50-5.40); RED CELL DISTRIBUTION WIDTH 13.3 % (11.5-14.5); WHITE BLOOD COUNT 7.3 x10^3/uL (4.0-11.0)
[2019-02-20 21:45] LABS: ALBUMIN 3.6 g/dL (3.4-5.0); ALK PHOS 78 U/L (46-116); ALT (SGPT) 19 U/L (14-59); ANION GAP 9 (6-14); AST (SGOT) 15 U/L (15-37); BLOOD UREA NITROGEN 11 mg/dL (7-20); BUN/CREATININE RATIO 14 (6-20); CALCIUM 8.8 mg/dL (8.5-10.1); CARBON DIOXIDE 35 mmol/L (21-32); CHLORIDE 98 mmol/L (98-107); CREATININE 0.8 mg/dL (0.6-1.0); GFR 92.2; GLUCOSE 325 mg/dL (70-99); LIPASE 142 U/L (73-393); MAGNESIUM 1.3 mg/dL (1.8-2.4); SODIUM 142 mmol/L (136-145); TOTAL BILIRUBIN 0.4 mg/dL (0.2-1.0); TOTAL PROTEIN 7.3 g/dL (6.4-8.2)
[2019-02-20 21:49] LABS: POTASSIUM 2.7 mmol/L (3.5-5.1)
[2019-02-20] MEDS ORDERED: POTA20TA82 PO (21:59)
[2019-02-20] MEDS ORDERED: MAGNESIUM CHLORIDE ER 64 MG TABLET.ER PO ONE (22:00)
[2019-02-20] MEDS ORDERED: POTASSIUM CHLORIDE 20 MEQ TABLET.ER. PO ONE (22:00)
--- NOTE | 2019-02-21 05:33 | EKG ---
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
== END 2019-02-20 22:05 | disposition home or self-care (01) ==
LOC: ER 19:02
DX: R10.13 Epigastric pain (principal); R11.2 Nausea with vomiting, unspecified; E87.6 Hypokalemia; E83.42 Hypomagnesemia; E11.9 Type 2 diabetes mellitus without complications; I10 Essential (primary) hypertension; Z90.89 Acquired absence of other organs; Z90.710 Acquired absence of both cervix and uterus; Z98.51 Tubal ligation status; Z88.5 Allergy status to narcotic agent
CPT/HCPCS: 36415; 80053; 81001; 82553; 83690; 83735; 84484; 85025; 93005; 96361; 96374; 96375; 99285; J1885; J2405; J3490; J7030

== ENCOUNTER 2020-05-09 14:45 | Emergency (ER) | payer BC ==
[~2020-05-09] VITALS: Ht 144.8 cm; Wt 67.3 kg
[~2020-05-09 14:45] MED LIST changes: +FAMO-63 PO; +HYDR-2767 PO; -HYDR-52 PO; +ONDA4TAB12 PO; +POTA20TA4 PO
--- NOTE | 2020-05-09 15:17 | PHYS DOC ---
Past History Past Medical History: Diabetes, Hypertension (BEVERLEY WOLFE APRN) Past Surgical History: Appendectomy, Hysterectomy, Tubal ligation (BEVERLEY WOLFE APRN) Smoking: Non-smoker Alcohol Use: None Drug Use: None (BEVERLEY WOLFE APRN) Adult General Chief Complaint Chief Complaint: ABDOMINAL PAIN HPI HPI Patient is a 49-year-old female presents to emergency department today reporting that she woke up 7 days ago experiencing right upper quadrant pain and swelling, patient states her pain is an 8/10 on a 1-10 pain scale. Patient states her pain radiates through to her back. Patient describes her pain as a burning/stabbing/sharp pain. Patient states that she took her Percocets for pain which relieved her pain down to a 3/10 pain. Patient denies nausea, vomiting, constipation. Patient states she usually has loose stools because she takes Metformin daily. Patient denies any abdominal trauma. Patient denies recent fevers or chills, denies chest pain, denies chest congestion, denies nasal congestion. Patient denies being a cigarette smoker, denies alcohol consumption, denies illicit drug use. Patient states that she is a type II diabetic, takes Percocet for chronic right knee pain, and high blood pressure. Patient denies any surgical history. Patient states no one else living in her home is having the same symptoms that she. (BEVERLEY WOLFE APRN) Review of Systems Review of Systems 14 body systems of review of systems have been reviewed. See HPI for pertinent positives and negative responses, otherwise all other systems are negative, nonpertinent or noncontributory. (BEVERLEY WOLFE APRN) Current Medications Current Medications Patient states she takes lisinopril, glipizide, Percocet 10-325 mg, metoprolol, Metformin, potassium chloride. (BEVERLEY WOLFE APRN) Allergies Allergies Allergies Coded Allergies Type Severity Reaction Last Updated Verified codeine Allergy Unknown 05/16/18 Yes hydrocodone Allergy Unknown 05/16/18 Yes (BEVERLEY WOLFE APRN) Physical Exam Physical Exam Constitutional: Well developed, well nourished, no acute distress, non-toxic appearance. [] HENT: Normocephalic, atraumatic, bilateral external ears normal, oropharynx moist, no oral exudates, nose normal. [] Eyes: PERRLA, EOMI, conjunctiva normal, no discharge. [] Neck: Normal range of motion, no tenderness, supple, no stridor. [] Cardiovascular:Heart rate regular rhythm, no murmur [] Lungs & Thorax: Bilateral breath sounds clear to auscultation [] Abdomen: Bowel sounds normal, soft, no tenderness, no masses, no pulsatile masses. [] Skin: Warm, dry, no erythema, no rash. [] Back: No tenderness, no CVA tenderness. [] Extremities: No tenderness, no cyanosis, no clubbing, ROM intact, no edema. [] Neurologic: Alert and oriented X 3, normal motor function, normal sensory function, no focal deficits noted. [] Psychologic: Affect normal, judgement normal, mood normal. [] (BEVERLEY WOLFE APRN) Current Patient Data Vital Signs Vital Signs Date Time Temp Pulse Resp B/P (MAP) Pulse Ox O2 Delivery O2 Flow Rate FiO2 05/09/20 14:53 98.1 103 16 135/92 (106) 99 Room Air Lab Results Laboratory Tests Test 05/09/20 15:25 05/09/20 15:33 White Blood Count 6.9 x10^3/uL Red Blood Count 4.67 x10^6/uL Hemoglobin 14.4 g/dL Hematocrit 42.2 % Mean Corpuscular Volume 90 fL Mean Corpuscular Hemoglobin 31 pg Mean Corpuscular Hemoglobin Concent 34 g/dL Red Cell Distribution Width 13.3 % Platelet Count 223 x10^3/uL Neutrophils (%) (Auto) 44 % Lymphocytes (%) (Auto) 48 % Monocytes (%) (Auto) 6 % Eosinophils (%) (Auto) 1 % Basophils (%) (Auto) 1 % Neutrophils # (Auto) 3.1 x10^3uL Lymphocytes # (Auto) 3.3 x10^3/uL Monocytes # (Auto) 0.4 x10^3/uL Eosinophils # (Auto) 0.1 x10^3/uL Basophils # (Auto) 0.0 x10^3/uL Sodium Level 143 mmol/L Potassium Level 3.7 mmol/L Chloride Level 105 mmol/L Carbon Dioxide Level 28 mmol/L Anion Gap 10 Blood Urea Nitrogen 14 mg/dL Creatinine 0.6 mg/dL Estimated GFR (Cockcroft-Gault) 128.0 BUN/Creatinine Ratio 23 Glucose Level 127 mg/dL Calcium Level 8.6 mg/dL Total Bilirubin 0.3 mg/dL Aspartate Amino Transf (AST/SGOT) 20 U/L Alanine Aminotransferase (ALT/SGPT) 29 U/L Alkaline Phosphatase 79 U/L Total Protein 6.9 g/dL Albumin 3.5 g/dL Albumin/Globulin Ratio 1.0 Lipase 95 U/L Urine Collection Type Unknown Urine Color Yellow Urine Clarity Clear Urine pH 5.0 Urine Specific [place] >=1.030 Urine Protein Neg Urine Glucose (UA) Neg mg/dL Urine Ketones (Stick) Neg mg/dL Urine Blood Neg Urine Nitrite Neg Urine Bilirubin Neg Urine Urobilinogen Dipstick 0.2 mg/dL Urine Leukocyte Esterase Neg Urine RBC Occ /HPF Urine WBC Occ /HPF Urine Squamous Epithelial Cells Mod /LPF Urine Bacteria Few /HPF Urine Hyaline Casts Occ /HPF Urine Opiates Screen Neg Urine Methadone Screen Neg Urine Barbiturates Neg Urine Phencyclidine Screen Neg Urine Amphetamine/Methamphetamine Neg Urine Benzodiazepines Screen Neg Urine Cocaine Screen Neg Urine Cannabinoids Screen Pos Urine Ethyl Alcohol Neg Current Medications Medications (Trade) Dose Ordered Sig/Nenita Route PRN Reason Start Time Stop Time Status Last Admin Dose Admin Sodium Chloride 1,000 ml @ 1,000 mls/hr 1X ONCE IV 05/09/20 15:30 05/09/20 16:29 DC 05/09/20 15:31 Fentanyl Citrate (Fentanyl 2ml Vial) 50 mcg 1X ONCE IVP 05/09/20 15:30 05/09/20 15:31 DC 05/09/20 15:31 (BEVERLEY WOLFE APRN) EKG EKG [] (BEVERLEY WOLFE APRN) Radiology/Procedures Radiology/Procedures SEX: F EXAM STATUS: REG ER ORD. PHYSICIAN: BEVERLEY WOLFE APRN REASON: LUQ PAIN, NAUSEA PROCEDURE: CT ABD PELV W/ IV CONTRST ONLY Exam: CT of abdomen and pelvis with contrast INDICATION: Left upper quadrant pain, nausea TECHNIQUE: Sequential axial images through the abdomen and pelvis obtained following the administration of 75 mL of Isovue 370 IV contrast. Sagittal and coronal reformatted images were reconstructed from the axial data and reviewed. Comparisons: None FINDINGS: Heart size is normal. Visualized lung bases are clear. No pleural effusion. Liver, spleen, pancreas and adrenals are unremarkable. Gallbladder surgically absent. Kidneys demonstrate symmetric enhancement. No renal or ureteral calculi. Bladder is decompressed not well evaluated. Uterus is absent. No abnormal adnexal mass. Large and small bowel are unremarkable. Appendix is identified. No free intra- abdominal air or fluid. No obstruction. Abdominal aorta has a normal course and caliber. Abdominal vasculature is patent. No enlarged abdominal lymph nodes are identified. No suspicious osseous lesions or acute fractures. IMPRESSION: No acute process identified in the abdomen or pelvis. Exposure: One or more of the following in the visualized dose reduction techniques were utilized for this examination: 1. Automated exposure control 2. Adjustment of the MA and/or KV according to patient size 3. Use of iterative of reconstructive technique Electronically signed by: Archana Borja MD (05/09/2020 5:52 PM) [facility] DICTATED AND SIGNED BY: ARCHANA BORJA MD DATE: 05/09/20 1734 CC: BEVERLEY WOLFE APRN; JOHN CHASE MD; EMERGENCY,DEPARTMENT ~MTH0 0 (BEVERLEY WOLFE APRN) Heart Score Risk Factors: Risk Factors: DM, Current or recent (<one month) smoker, HTN, HLP, family history of CAD, obesity. Risk Scores: Risk Factors: DM, Current or recent (<one month) smoker, HTN, HLP, family history of CAD, obesity. (BEVERLEY WOLFE APRN) Course & Med Decision Making Course & Med Decision Making Pertinent Labs and Imaging studies reviewed. (See chart for details) 49-year-old female, vital signs reviewed, presented to the ER for abdominal pain, and ED work-up was initiated, UA/UDS/CBC/CMP/lipase/IV normal saline/50 mcg fentanyl for pain. Will determine imaging sonogram limited abdomen versus CT stone study versus CT abdomen pelvis with contrast after lab results. Patient serum labs equivocal, UDS revealed positive for marijuana however negative for opiates with patient chronic history of taking Percocet daily, suspected her urine to be opiate positive. Patient's lipase is negative, this is ruled out need for limited sonogram abdomen study, no blood in urine has ruled out need for CT stone study, will perform a CT abdomen pelvis with contrast. Upon reexamination of the patient, patient is now pain-free, patient's CT abdomen pelvis with contrast was negative for concerning findings. Discussed findings with patient, will diagnosed with abdominal pain of unknown etiology, patient gave verbal understanding of discharge home instructions, return ER concerns, follow-up with primary care doctor soon, discharged home without incident. (BEVERLEY WOLFE APRN) Dragon Disclaimer Dragon Disclaimer This electronic medical record was generated, in whole or in part, using a voice recognition dictation system. (BEVERLEY WOLFE APRN) Departure Departure: Impression: Primary Impression: Abdominal pain Disposition: 01 DC HOME SELF CARE/HOMELESS Condition: GOOD Referrals: JOHN CHASE MD (PCP) Patient Instructions: Abdominal Pain Additional Instructions: Please follow-up with your primary care physician for ongoing abdominal pain symptoms, return to the emergency department for worsening symptoms or other concerns. EMERGENCY DEPARTMENT GENERAL DISCHARGE INSTRUCTIONS Thank you for coming to [facility] (ED) today and trusting us with you care. We trust that you had a positivie experience in our Emergency Department. If you wish to speak to the department management, you may call the director at [phone]. YOUR FOLLOW UP INSTRUCTIONS ARE FOLLOWS: 1. Do you have a private Doctor? If you do not have a private doctor, please ask for a resource list of physicians or clinics that may be able to assist you with follow up care. 2. The Emergency Physician has interpreted your x-rays. The X-Ray specialist will also review them. If there is a change in the findings, you will be notified in 48 hours when at all possible. 3. A lab test or culture has been done, your results will be reviewed and you will be notified if you need a change in treatment. ADDITIONAL INSTRUCTIONS AND INFORMATION: 1. Your care today has been supervised by a physician who is specially trained in emergency care. Many problems require more than one evaluation for a complete diagnosis and treatment. We recommend that you schedule your follow up appointment as recommended to ensure complete treatment of you illness or injury. If you are unable to obtain follow up care and continue to have a problem, or if your condition worsens, we recommend that you return to the ED. 2. We are not able to safely determine your condition over the phone nor are we able to give sound medical advice over the phone. For these safety reasons, if you call for medical advice we will ask you to come to the ED for further evaluation. 3. If you have any questions regarding these discharge instructions please call the ED at [phone]. SAFETY INFORMATION: In the interest of safety, wellness, and injury prevention; we encourage you to wear your sealbelt, if you smoke; quite smoking, and we encourage family to use a protective helmet for bicycling and other sporting events that present an increased risk for head injury. IF YOUR SYMPTOMS WORSEN OR NEW SYMPTOMS DEVELOP, OR YOU HAVE CONCERNS ABOUT YOUR CONDITION; OR IF YOUR CONDITION WORSENS WHILE YOU ARE WAITING FOR YOUR FOLLOW UP APPOINT MENT; EITHER CONTACT YOUR PRIMARY CARE DOCTOR, THE PHYSICIAN WHOSE NAME AND NUMBER YOU WERE GIVEN, OR RETURN TO THE ED IMMEDIATELY. Attending Co-Sign Attending Co-Sign The patient was seen and interviewed as well as examined at the bedside. The chart was reviewed. The case was discussed. Agree with the plan of care. (AYANA DUCKWORTH MD) Problem Qualifiers Primary Impression: Abdominal pain Abdominal location: right upper quadrant Qualified Codes: R10.11 - Right upper quadrant pain BEVERLEY WOLFE APRN May 09, 2020 15:17 AYANA DUCKWORTH MD May 11, 2020 23:46
[2020-05-09] MEDS ORDERED: IV NORMAL SALINE 1,000ML 1,000 ML IV ONE (15:30)
[2020-05-09 16:10] LABS: BASO % 1 % (0-3); EOS # 0.1 x10^3/uL (0.0-0.7); EOS % 1 % (0-3); HEMATOCRIT 42.2 % (36.0-47.0); HEMOGLOBIN 14.4 g/dL (12.0-15.5); LYMPH # 3.3 x10^3/uL (1.0-4.8); LYMPH % 48 % (24-48); MEAN CORPUSCULAR HEMOGLOBIN 31 pg (25-35); MEAN CORPUSCULAR HGB CONC 34 g/dL (31-37); MEAN CORPUSCULAR VOLUME 90 fL (79-100); MONO # 0.4 x10^3/uL (0.0-1.1); MONO % 6 % (0-9); NEUT # 3.1 x10^3uL (1.8-7.7); NEUT % 44 % (31-73); PLATELET COUNT 223 x10^3/uL (140-400); RED BLOOD COUNT 4.67 x10^6/uL (3.50-5.40); RED CELL DISTRIBUTION WIDTH 13.3 % (11.5-14.5); WHITE BLOOD COUNT 6.9 x10^3/uL (4.0-11.0)
[2020-05-09 16:15] LABS: CALCIUM 8.6 mg/dL (8.5-10.1); CREATININE 0.6 mg/dL (0.6-1.0); POTASSIUM 3.7 mmol/L (3.5-5.1)
[2020-05-09 16:16] LABS: BARBITURATES NEG (NEG); BENZODIAZEPINES NEG (NEG); CANNABINOIDS POS (NEG); COCAINE NEG (NEG); METHADONE NEG (NEG); OPIATES NEG (NEG); PHENCYCLIDINE NEG (NEG)
[2020-05-09 16:17] LABS: AMPHETAMINE/METHAMPHETAMINE NEG (NEG)
[2020-05-09 16:21] LABS: ALBUMIN 3.5 g/dL (3.4-5.0); TOTAL BILIRUBIN 0.3 mg/dL (0.2-1.0); TOTAL PROTEIN 6.9 g/dL (6.4-8.2)
[2020-05-09 16:25] LABS: BILIRUBIN,URINE NEG (NEG); CLARITY,URINE CLEAR; COLOR,URINE YELLOW; GLUCOSE,URINE NEG (NEG)
[2020-05-09 16:26] LABS: BACTERIA,URINE FEW /HPF (0-FEW); HYALINE CASTS, URINE OCC /HPF; NITRITE,URINE NEG (NEG); RBC,URINE OCC /HPF (0-2); SQUAMOUS EPITHELIAL CELL,UR MOD /LPF; UROBILINOGEN,URINE 0.2 mg/dL (0.2 mg/dL); WBC,URINE OCC /HPF (0-4)
[2020-05-09] MEDS ORDERED: IOHEXOL 300 MG/ML 75 ML VIAL. IV ONE (16:45)
--- NOTE | 2020-05-09 17:21 | RAD ---
Single view chest dated 05/09/2020: Comparison made 11/23/2018 Clinical Indication: Pain. Findings: Single upright portable exam of the chest was performed. Heart size and mediastinal contours are with in normal limits given technique. The lungs are clear without evidence of focal consolidation. Vascul ar interstitium is within normal limits. Impression:: Negative portable chest. Electronically signed by: Santos Nino MD (05/09/2020 5:18 PM) [id number]
--- NOTE | 2020-05-09 17:54 | RAD ---
Exam: CT of abdomen and pelvis with contrast INDICATION: Left upper quadrant pain, nausea TECHNIQUE: Sequential axial images through the abdomen and pelvis obtained following the administrati on of 75 mL of Isovue 370 IV contrast. Sagittal and coronal reformatted images were reconstructed fro m the axial data and reviewed. Comparisons: None FINDINGS: Heart size is normal. Visualized lung bases are clear. No pleural effusion. Liver, spleen, pancreas and adrenals are unremarkable. Gallbladder surgically absent. Kidneys demonstrate symmetric enhancement. No renal or ureteral calculi. Bladder is decompressed not well evaluated. Uterus is absent. No abnormal adnexal mass. Large and small bowel are unremarkable. Appendix is identified. No free intra-abdominal air or fluid. No obstruction. Abdominal aorta has a normal course and caliber. Abdominal vasculature is patent. No enlarged abdominal lymph nodes are identified. No suspicious osseous lesions or acute fractures. IMPRESSION: No acute process identified in the abdomen or pelvis. Exposure: One or more of the following in the visualized dose reduction techniques were utilized for this examination: 1. Automated exposure control 2. Adjustment of the MA and/or KV according to patient size 3. Use of iterative of reconstructive technique Electronically signed by: Archana Johansen MD (05/09/2020 5:52 PM) [facility]
[2020-05-09 18:29] VITALS: BP 128/78
== END 2020-05-09 18:47 | disposition home or self-care (01) ==
LOC: ER 14:45
DX: R10.11 Right upper quadrant pain (principal); R19.00 Intra-abdominal and pelvic swelling, mass and lump, unspecified site; E11.9 Type 2 diabetes mellitus without complications; I10 Essential (primary) hypertension; Z90.89 Acquired absence of other organs; Z90.710 Acquired absence of both cervix and uterus; Z98.51 Tubal ligation status; Z88.5 Allergy status to narcotic agent
CPT/HCPCS: 36415; 71045; 74177; 80053; 80307; 81001; 83690; 85025; 96361; 96374; 99285; J3010; J7030; Q9967

== ENCOUNTER 2020-07-15 07:02 | Emergency (ER) | payer BC ==
[~2020-07-15] VITALS: Ht 149.9 cm; Wt 66.3 kg
[2020-07-15 07:08] VITALS: BP 163/90
--- NOTE | 2020-07-15 07:23 | PHYS DOC ---
Past History Past Medical History: Diabetes, Hypertension Past Surgical History: Appendectomy, Hysterectomy, Tubal ligation Smoking: Non-smoker Alcohol Use: None Drug Use: None General Adult EDM: Chief Complaint: BACK PAIN OR INJURY HPI: HPI: 50-year-old female significant history of hypertension, hyperlipidemia, diabetes mellitus, who presents for evaluation of several weeks of intermittent colicky left flank pain that radiates to the left abdomen. No nausea, vomiting, diarrhea, dysuria, hematuria. Prior abdominal surgeries include tubal ligation and appendectomy. No aggravating or alleviating factors. No prior history of nephrolithiasis. She states she was seen for similar symptoms in April, though documentation states this was more so left upper quadrant pain. Review of Systems: Review of Systems: Gen: No fever, chills. Eyes: No blurred vision, diplopia. ENT: No nasal congestion, sore throat. CV: No CP, palpitations. Resp. No SOB, cough. GI: No N/V. Reports left flank pain. : No dysuria, hematuria. Neuro: No WHITT, dizziness, weakness. MSK: No myalgia, arthralgia. Skin: No acute rash or lesion. Remainder of systems reviewed and negative unless otherwise specified. Allergies: Allergies: Allergies Coded Allergies Type Severity Reaction Last Updated Verified codeine Allergy Unknown 05/16/18 Yes hydrocodone Allergy Unknown 05/16/18 Yes morphine Allergy Unknown 07/15/20 Yes Physical Exam: PE: Gen: NAD. Well nourished. Head: NC/AT. Eyes: No scleral icterus. No conjunctival injection. ENT: MMM. Posterior OP clear. Neck: Supple. NT. No JVD. CV: RRR. Peripheral pulses intact. Resp: CTAB. Abd: Soft. ND. Mild left flank percussion tenderness without overlying skin lopes ges. Mild nonfocal primarily LUQ TTP without R/G/R. MSK: No peripheral cyanosis. No edema. Neuro: Awake and alert. Skin. Warm. Dry. Psych: Appropriate mood & affect. Current Patient Data: Labs: Laboratory Tests Test 07/15/20 07:30 White Blood Count 6.2 x10^3/uL (4.0-11.0) Red Blood Count 4.56 x10^6/uL (3.50-5.40) Hemoglobin 14.0 g/dL (12.0-15.5) Hematocrit 41.4 % (36.0-47.0) Mean Corpuscular Volume 91 fL (79-100) Mean Corpuscular Hemoglobin 31 pg (25-35) Mean Corpuscular Hemoglobin Concent 34 g/dL (31-37) Red Cell Distribution Width 13.0 % (11.5-14.5) Platelet Count 215 x10^3/uL (140-400) Neutrophils (%) (Auto) 54 % (31-73) Lymphocytes (%) (Auto) 36 % (24-48) Monocytes (%) (Auto) 6 % (0-9) Eosinophils (%) (Auto) 3 % (0-3) Basophils (%) (Auto) 1 % (0-3) Neutrophils # (Auto) 3.4 x10^3uL (1.8-7.7) Lymphocytes # (Auto) 2.2 x10^3/uL (1.0-4.8) Monocytes # (Auto) 0.4 x10^3/uL (0.0-1.1) Eosinophils # (Auto) 0.2 x10^3/uL (0.0-0.7) Basophils # (Auto) 0.1 x10^3/uL (0.0-0.2) Sodium Level 141 mmol/L (136-145) Potassium Level 3.8 mmol/L (3.5-5.1) Chloride Level 107 mmol/L (98-107) Carbon Dioxide Level 29 mmol/L (21-32) Anion Gap 5 (6-14) L Blood Urea Nitrogen 14 mg/dL (7-20) Creatinine 0.9 mg/dL (0.6-1.0) Estimated GFR (Cockcroft-Gault) 79.9 BUN/Creatinine Ratio 16 (6-20) Glucose Level 289 mg/dL (70-99) H Calcium Level 8.5 mg/dL (8.5-10.1) Magnesium Level 1.5 mg/dL (1.8-2.4) L Total Bilirubin 0.2 mg/dL (0.2-1.0) Aspartate Amino Transferase (AST) 13 U/L (15-37) L Alanine Aminotransferase (ALT) 18 U/L (14-59) Alkaline Phosphatase 105 U/L (46-116) Total Protein 7.0 g/dL (6.4-8.2) Albumin 3.6 g/dL (3.4-5.0) Albumin/Globulin Ratio 1.1 (1.0-1.7) Lipase 100 U/L (73-393) EKG: EKG: [] Radiology/Procedures: Radiology/Procedures: CT abdomen/pelvis without contrast 07/15/2020 7:24 AM INDICATION: Left flank pain COMPARISON: CT abdomen/pelvis 05/09/2020 TECHNIQUE: Multiple axial CT images of the abdomen and pelvis were obtained with out intravenous contrast. Coronal and sagittal reformats are provided. FINDINGS: Visualized portions of the lung bases are clear. Heart size is within normal limits. Evaluation of the solid abdominal viscera is limited by lack of intravenous contrast. No suspicious hepatic masses are identified. Spleen, bilateral adrenal glands, and pancreas are normal in appearance. Gallbladder is surgically absent. The abdominal aorta is normal in course and caliber. There are no pathologically enlarged lymph nodes in the abdomen and pelvis. There is no abdominal free fluid. There is no free intraperitoneal air. Mild calcified atheromatous plaque is identified involving the abdominal aorta. Small and large bowel are normal in caliber. There is no evidence for bowel o bstruction. There are no pericolonic inflammatory changes. Appendix not definitively visualized. No pericecal inflammatory changes are identified. The kidneys are relatively symmetric in appearance. There is no suspicious renal mass within the limitations of a noncontrast examination. There is no hydronephrosis. There are no calculi within the kidneys, ureters or urinary bladder. Urinary bladder is within normal limits given degree of distention. No suspicious osseous abnormality is identified. Urinary bladder is within normal limits given degree of distention. Uterus appears surgically absent. IMPRESSION: 1. No evidence for obstructive uropathy. 2. No acute abnormality identified in abdomen and pelvis. Electronically signed by: Inna Fowler MD (07/15/2020 8:09 AM) [id number] Heart Score: C/O Chest Pain: No Risk Factors: Risk Factors: DM, Current or recent (<one month) smoker, HTN, HLP, family history of CAD, obesity. Risk Scores: Score 0 - 3: 2.5% MACE over next 6 weeks - Discharge Home Score 4 - 6: 20.3% MACE over next 6 weeks - Admit for Clinical Observation Score 7 - 10: 72.7% MACE over next 6 weeks - Early Invasive Strategies Course & Med Decision Making: Course & Med Decision Making Pertinent Labs and Imaging studies reviewed. (See chart for details) In summary, 50F p/w over a month of intermittent colicky left flank pain that radiates to the LUQ. No other GI/ Sx. No trauma or fall. HDS. Nonfocal left flank and primarily LUQ abd TTP without R/G/R. No midline spinal TTP. Labs unrevealing. CTAP neg for nephrolithiasis or other acute intraabdominal pathology. Unclear etiology but current DDx includes but not limited to: gastroparesis, gastritis/PUD, thoracic radiculopathy, etc. Remains well appearing and nontoxic. Will DC with empiric treatment with protonix, reglan, lido patches. Outpatient F/U. Return precautions given. Kathy Disclaimer: Kathy Disclaimer: This electronic medical record was generated, in whole or in part, using a voice recognition dictation system. Departure Departure: Impression: Primary Impression: Left flank pain Additional Impression: Left upper quadrant abdominal pain Disposition: 01 DC HOME SELF CARE/HOMELESS Condition: STABLE Referrals: PCP,RAMOS (PCP) [facility] Patient Instructions: Flank Pain, [id number] Additional Instructions: Please follow up with the grinder set up operator gear tool listed, or the grinder set up operator gear tool of your choice. No kidney stone or acute pathology was identified on your CT today. Your blood work looked reassuring as well. Take the medication as directed. Scripts Lidocaine (Lidocaine PATCH ) 1 Each Adh..patch 1 EACH TP DAILY for FOR LOCAL PAIN, #10 PATCH REMOVE AFTER 12 HOURS Prov: LE,YAMILKA H DO 07/15/20 Metoclopramide Hcl (REGLAN) 10 Mg Tablet 1 TAB PO TID for gastric pain, #30 TAB 0 Refills before food and bedtime Prov: LE,YAMILKA H DO 07/15/20 Pantoprazole Sodium (PROTONIX) 40 Mg Tablet.dr 1 TAB PO DAILY for GERD, #30 TAB 5 Refills Prov: LE,YAMILKA H DO 07/15/20 LE,YAMILKA H DO Jul 15, 2020 07:23
[2020-07-15] MEDS: KETOROLAC 15 MG/ML VIAL. IVP ONE (07:33)
[2020-07-15] MEDS: IV NORMAL SALINE 1,000ML 1,000 ML IV SCH (07:33)
[2020-07-15 07:53] LABS: BASO # 0.1 x10^3/uL (0.0-0.2); BASO % 1 % (0-3); EOS # 0.2 x10^3/uL (0.0-0.7); EOS % 3 % (0-3); HEMATOCRIT 41.4 % (36.0-47.0); LYMPH # 2.2 x10^3/uL (1.0-4.8); LYMPH % 36 % (24-48); MEAN CORPUSCULAR HEMOGLOBIN 31 pg (25-35); MEAN CORPUSCULAR HGB CONC 34 g/dL (31-37); MEAN CORPUSCULAR VOLUME 91 fL (79-100); MONO # 0.4 x10^3/uL (0.0-1.1); MONO % 6 % (0-9); NEUT # 3.4 x10^3uL (1.8-7.7); NEUT % 54 % (31-73); PLATELET COUNT 215 x10^3/uL (140-400); RED BLOOD COUNT 4.56 x10^6/uL (3.50-5.40); WHITE BLOOD COUNT 6.2 x10^3/uL (4.0-11.0)
[2020-07-15 08:01] LABS: CALCIUM 8.5 mg/dL (8.5-10.1); CREATININE 0.9 mg/dL (0.6-1.0); GFR 79.9; POTASSIUM 3.8 mmol/L (3.5-5.1)
[2020-07-15 08:07] LABS: ALBUMIN 3.6 g/dL (3.4-5.0); ALBUMIN/GLOBULIN RATIO 1.1 (1.0-1.7); MAGNESIUM 1.5 mg/dL (1.8-2.4); TOTAL BILIRUBIN 0.2 mg/dL (0.2-1.0)
--- NOTE | 2020-07-15 08:11 | RAD ---
PQRS Compliance Statement: One or more of the following individualized dose reduction techniques were utilized for this examinat ion: 1. Automated exposure control 2. Adjustment of the mA and/or kV according to patient size 3. Use of iterative reconstruction technique CT abdomen/pelvis without contrast 07/15/2020 7:24 AM INDICATION: Left flank pain COMPARISON: CT abdomen/pelvis 05/09/2020 TECHNIQUE: Multiple axial CT images of the abdomen and pelvis were obtained without intravenous contr ast. Coronal and sagittal reformats are provided. FINDINGS: Visualized portions of the lung bases are clear. Heart size is within normal limits. Evaluation of the solid abdominal viscera is limited by lack of intravenous contrast. No suspicious hepatic masses are identified. Spleen, bilateral adrenal glands, and pancreas are smith l in appearance. Gallbladder is surgically absent. The abdominal aorta is normal in course and caliber. There are no pathologically enlarged lymph nodes in the abdomen and pelvis. There is no abdominal free fluid. There is no free intraperitoneal air. M ild calcified atheromatous plaque is identified involving the abdominal aorta. Small and large bowel are normal in caliber. There is no evidence for bowel obstruction. There are no pericolonic inflammatory changes. Appendix not definitively visualized. No pericecal inflammatory ch anges are identified. The kidneys are relatively symmetric in appearance. There is no suspicious renal mass within the limi tations of a noncontrast examination. There is no hydronephrosis. There are no calculi within the kid neys, ureters or urinary bladder. Urinary bladder is within normal limits given degree of distention. No suspicious osseous abnormality is identified. Urinary bladder is within normal limits given degree of distention. Uterus appears surgically absent. IMPRESSION: 1. No evidence for obstructive uropathy. 2. No acute abnormality identified in abdomen and pelvis. Electronically signed by: Inna Fowler MD (07/15/2020 8:09 AM) [id number]
[2020-07-15] MEDS ORDERED: METO10TA81 PO ×2 (08:27→08:41)
[2020-07-15] MEDS ORDERED: PANT40TA3 PO ×2 (08:27→08:41)
[2020-07-15] MEDS ORDERED: LIDO700A21 TP ×2 (08:27→08:41)
== END 2020-07-15 08:50 | disposition home or self-care (01) ==
LOC: ER 07:02
DX: R10.12 Left upper quadrant pain (principal); E11.9 Type 2 diabetes mellitus without complications; I10 Essential (primary) hypertension; Z90.89 Acquired absence of other organs; Z90.710 Acquired absence of both cervix and uterus; Z98.51 Tubal ligation status; Z88.5 Allergy status to narcotic agent
CPT/HCPCS: 36415; 74176; 80053; 83690; 83735; 85025; 96361; 96374; 96375; 99284; J1885; J3010; J7030

== ENCOUNTER → 2020-07-17 | Outpatient (CLI) | payer BC ==
[2020-07-15 07:08] VITALS: BP 163/90
[~2020-07-17] MED LIST changes: +LIDO700A21 TP; +METO10TA81 PO; +PANT40TA3 PO
--- NOTE | 2020-07-17 17:34 | RAD ---
XR ABDOMEN 2V History: Reason: LUQ PAIN / Spl. Instructions: / History: Technique: Upright and supine views the abdomen. Comparison: CT July 15, 2020. Findings: Imaged lung bases are unremarkable. No pneumoperitoneum. Surgical clips right upper quadrant. Minimal small bowel gas. Air and stool scattered throughout the imaged colon. Lower lumbar spondylosis. Impression: 1. Nonobstructed bowel gas pattern. Electronically signed by: Niels Dorado DO (07/17/2020 5:32 PM) [id number]
== END ==
LOC: RAD 11:35
PROVIDERS: ATTEND Physician Assistant
DX: R10.12 Left upper quadrant pain (principal)
CPT/HCPCS: 74019

== ENCOUNTER 2020-08-06 16:36 | Emergency (ER) | payer BC ==
[~2020-08-06] VITALS: Ht 149.9 cm; Wt 66.3 kg
[2020-08-06] MEDS ORDERED: KETOROLAC 15 MG/ML VIAL. IVP ONE (17:15)
[2020-08-06] MEDS ORDERED: IV NORMAL SALINE 1,000ML 1,000 ML IV ONE (17:15)
--- NOTE | 2020-08-06 17:19 | PHYS DOC ---
Past History Past Medical History: Diabetes, Hypertension Past Surgical History: Appendectomy, Hysterectomy, Oophorectomy, Tubal ligation Smoking: Non-smoker Alcohol Use: None Drug Use: None General Adult EDM: Chief Complaint: ABDOMINAL PAIN HPI: HPI: Patient is a 50-year-old female who presents with abdominal pain that radiates to the left flank. Patient states "I have had this abdominal pain since April, and they cannot figure out what is wrong with me". "I did vomit once over the weekend, but normally I do not have nausea with this". Patient denies dysuria, frequency, fevers. Patient denies chest pain, shortness of breath. Patient states that she took Aleve yesterday and had some relief. Patient has history of diabetes, hypertension. Review of Systems: Review of Systems: Constitutional: Denies fever or chills Eyes: Denies change in visual acuity HENT: Denies nasal congestion or sore throat Respiratory: Denies cough or shortness of breath Cardiovascular: Denies chest pain or edema GI: Reports abdominal pain, denies nausea, vomiting, bloody stools or diarrhea : Denies dysuria Musculoskeletal: Denies back pain or joint pain Integument: Denies rash Neurologic: Denies headache, focal weakness or sensory changes Endocrine: Denies polyuria or polydipsia Lymphatic: Denies swollen glands Psychiatric: Denies depression or anxiety Allergies: Allergies: Allergies Coded Allergies Type Severity Reaction Last Updated Verified codeine Allergy Unknown 08/06/20 Yes hydrocodone Allergy Unknown 08/06/20 Yes morphine Allergy Unknown 08/06/20 Yes Physical Exam: PE: Constitutional: Well developed, well nourished, no acute distress, non-toxic ap pearance. [] HENT: Normocephalic, atraumatic, bilateral external ears normal, oropharynx moist, no oral exudates, nose normal. [] Eyes: PERRLA, EOMI, conjunctiva normal, no discharge. [] Neck: Normal range of motion, no tenderness, supple, no stridor. [] Cardiovascular:Heart rate regular rhythm, no murmur [] Lungs & Thorax: Bilateral breath sounds clear to auscultation [] Abdomen: Bowel sounds normal, soft, lower, mid abdominal tenderness Skin: Warm, dry, no erythema, no rash. [] Back: No tenderness, left-sided flank pain Extremities: No tenderness, no cyanosis, no clubbing, ROM intact, no edema. [] Neurologic: Alert and oriented X 3, normal motor function, normal sensory function, no focal deficits noted. [] Psychologic: Affect normal, judgement normal, mood normal. [] Current Patient Data: Vital Signs: Vital Signs Date Time Temp Pulse Resp B/P (MAP) Pulse Ox O2 Delivery O2 Flow Rate FiO2 08/06/20 16:53 98.2 96 18 154/90 (111) 90 Room Air EKG: EKG: [] Radiology/Procedures: Radiology/Procedures: []AP chest. HISTORY: Abdominal pain, chest pain AP view was taken of the chest. Lungs are clear. Heart is normal in size. There is no pleural effusion. IMPRESSION: 1. No acute chest disease. Electronically signed by: Jian Pretty MD (08/06/2020 5:50 PM) [facility] EXAM: CT Abdomen and Pelvis without IV contrast CLINICAL HISTORY: Reason: abd pain, umbilical,lower abdomen for 4 months, worse for 3 weeks / Spl. Instructions: / History: . COMPARISON: none TECHNIQUE: Helical CT of the abdomen and pelvis without intravenous contrast. Axial, coronal and sagittal reformatted images were generated. PQRS compliance statement - One or more of the following individualized dose reduction techniques were utilized for this study: 1. Automated exposure control 2. Adjustment of the mA and/or kV according to patient size 3. Use of iterative reconstruction technique FINDINGS: Lack of intravenous contrast limits evaluation of solid organs, vasculature, and lymph nodes. Lower chest: Linear opacities are lobes likely scarring/atelectasis. Abdomen and Pelvis: No focal liver lesion. Accounting for postcholecystectomy change, no biliary ductal dilatation. Spleen, adrenal glands and pancreas are unremarkable. No focal renal lesion. No hydronephrosis. No hydroureter. No renal tract calculus. Diffuse bladder wall thickening likely cystitis. Moderate to large volume colonic stool content is seen. No small or large bowel dilatation. No bowel obstruction. There has been a hysterectomy. No abdominal or pelvic lymphadenopathy although prominent mesenteric lymph nodes may be reactive. No abdominal or pelvic ascites. Bones: Symphysis pubis degenerative changes are seen. Hip joint degenerative changes are noted. No aggressive osseous lesion. Trace T9-T10 disc height loss. IMPRESSION: 1. No renal tract calculus. 2. Bladder wall thickening may be seen with cystitis and can be correlated with urinalysis. 3. Moderate to large colonic stool content cavity correlated for possible constipation. No bowel obstruction 4. Prominent mesenteric lymph nodes may be reactive. Heart Score: C/O Chest Pain: No Risk Factors: Risk Factors: DM, Current or recent (<one month) smoker, HTN, HLP, family history of CAD, obesity. Risk Scores: Score 0 - 3: 2.5% MACE over next 6 weeks - Discharge Home Score 4 - 6: 20.3% MACE over next 6 weeks - Admit for Clinical Observation Score 7 - 10: 72.7% MACE over next 6 weeks - Early Invasive Strategies Course & Med Decision Making: Course & Med Decision Making Pertinent Labs and Imaging studies reviewed. (See chart for details) [] Patient presents with chronic abdominal pain that radiates to left flank. Patient states that she has been seen for this numerous times without any diagnosis. Patient denies dysuria or frequency. Patient did report vomiting over the weekend but normally does not have nausea with this complaint. CT of abdomen and pelvis ordered UA to rule out infection. Patient is denying nausea at this time but requesting something for pain. Patient potassium was 3.0. Patient given 40 mEq of potassium. UA negative for infection. All other labs unremarkable. CT of abdomen pelvis does show large amount of stool. Advised patient she most likely has constipation. Instructed patient to ensure she is drinking plenty of fluid. Increase her fiber. She can also use Metamucil and also Colace. If patient continues to have pain she will need to follow-up PCP. Patient states that she has a follow-up appointment on the with GI for an upper and lower. Patient is okay with discharge instructions and plan. She reports that her pain has improved. Patient return the emergency room with worsening symptoms or concerns. Kathy Disclaimer: Kathy Disclaimer: This electronic medical record was generated, in whole or in part, using a voice recognition dictation system. Departure Departure: Impression: Primary Impression: Abdominal pain Qualified Codes: R10.30 - Lower abdominal pain, unspecified Disposition: HOME / SELF CARE / HOMELESS Condition: STABLE Referrals: STEPHEN LUA (PCP) Patient Instructions: Abdominal Pain Additional Instructions: The emergency room for abdominal pain and left flank pain. The CT of your abdomen did show that you had a large amount of stool. Make sure that you are drinking plenty of fluid. Increasing your fiber. You can also take Metamucil and Colace [id number] to help with bowel movement. If your symptoms do not resolve, follow-up with your PCP can give you a referral for GI. Please return to the emergency room with worsening symptoms or concerns. EMERGENCY DEPARTMENT GENERAL DISCHARGE INSTRUCTIONS Thank you for coming to [facility] (ED) today and trusting us with you care. We trust that you had a positivie experience in our Emergency Department. If you wish to speak to the department management, you may call the director at [phone]. YOUR FOLLOW UP INSTRUCTIONS ARE FOLLOWS: 1. Do you have a private Doctor? If you do not have a private doctor, please ask for a resource list of physicians or clinics that may be able to assist you with follow up care. 2. The Emergency Physician has interpreted your x-rays. The X-Ray specialist will also review them. If there is a change in the findings, you will be notified in 48 hours when at all possible. 3. A lab test or culture has been done, your results will be reviewed and you will be notified if you need a change in treatment. ADDITIONAL INSTRUCTIONS AND INFORMATION: 1. Your care today has been supervised by a physician who is specially trained in emergency care. Many problems require more than one evaluation for a complete diagnosis and treatment. We recommend that you schedule your follow up appointment as recommended to ensure complete treatment of you illness or injury. If you are unable to obtain follow up care and continue to have a problem, or if your condition worsens, we recommend that you return to the ED. 2. We are not able to safely determine your condition over the phone nor are we able to give sound medical advice over the phone. For these safety reasons, if you call for medical advice we will ask you to come to the ED for further evaluation. 3. If you have any questions regarding these discharge instructions please call the ED at [phone]. SAFETY INFORMATION: In the interest of safety, wellness, and injury prevention; we encourage you to wear your sealbelt, if you smoke; quite smoking, and we encourage family to use a protective helmet for bicycling and other sporting events that present an increased risk for head injury. IF YOUR SYMPTOMS WORSEN OR NEW SYMPTOMS DEVELOP, OR YOU HAVE CONCERNS ABOUT YOUR CONDITION; OR IF YOUR CONDITION WORSENS WHILE YOU ARE WAITING FOR YOUR FOLLOW UP APPOINTMENT; EITHER CONTACT YOUR PRIMARY CARE DOCTOR, THE PHYSICIAN WHOSE NAME AND NUMBER YOU WERE GIVEN, OR RETURN TO THE ED IMMEDIATELY. SHERICE VALERO APRN Aug 06, 2020 17:19
--- NOTE | 2020-08-06 17:53 | RAD ---
AP chest. HISTORY: Abdominal pain, chest pain AP view was taken of the chest. Lungs are clear. Heart is normal in size. There is no pleural effusio n. IMPRESSION: 1. No acute chest disease. Electronically signed by: Jian Pretty MD (08/06/2020 5:50 PM) [facility]
--- NOTE | 2020-08-06 18:12 | RAD ---
EXAM: CT Abdomen and Pelvis without IV contrast CLINICAL HISTORY: Reason: abd pain, umbilical,lower abdomen for 4 months, worse for 3 weeks / Spl. In structions: / History: . COMPARISON: none TECHNIQUE: Helical CT of the abdomen and pelvis without intravenous contrast. Axial, coronal and sagi ttal reformatted images were generated. PQRS compliance statement - One or more of the following individualized dose reduction techniques wer e utilized for this study: 1. Automated exposure control 2. Adjustment of the mA and/or kV according to patient size 3. Use of iterative reconstruction technique FINDINGS: Lack of intravenous contrast limits evaluation of solid organs, vasculature, and lymph nodes. Lower chest: Linear opacities are lobes likely scarring/atelectasis. Abdomen and Pelvis: No focal liver lesion. Accounting for postcholecystectomy change, no biliary ductal dilatation. Spleen, adrenal glands and pancreas are unremarkable. No focal renal lesion. No hydronephrosis. No hydroureter. No renal tract calculus. Diffuse bladder wa ll thickening likely cystitis. Moderate to large volume colonic stool content is seen. No small or large bowel dilatation. No bowel obstruction. There has been a hysterectomy. No abdominal or pelvic lymphadenopathy although prominent mesenteric lymph nodes may be reactive. No abdominal or pelvic ascites. Bones: Symphysis pubis degenerative changes are seen. Hip joint degenerative changes are noted. No aggressiv e osseous lesion. Trace T9-T10 disc height loss. IMPRESSION: 1. No renal tract calculus. 2. Bladder wall thickening may be seen with cystitis and can be correlated with urinalysis. 3. Moderate to large colonic stool content cavity correlated for possible constipation. No bowel obs truction 4. Prominent mesenteric lymph nodes may be reactive. Electronically signed by: Derick Oshea MD (08/06/2020 6:09 PM) [facility]
--- NOTE | 2020-08-06 18:16 | EKG ---
[address] [address] Test Date: 2020-08-06 Test Time: 17:32:04 Pat Name: ZAC OGLESBY Department: Room: Gender: F [employer] Worker: JACOBO : 1970 Requested By: SHERICE VALERO Order Number: [id number] Reading MD: Measurements Intervals [place] Rate: 80 P: 59 NM: 156 QRS: -22 QRSD: 82 T: 15 QT: 364 QTc: 423 Interpretive Statements SINUS RHYTHM LEFTWARD AXIS OTHERWISE NORMAL ECG RI6.02 No previous ECG available for comparison
[2020-08-06 18:24] LABS: BASO % 1 % (0-3); EOS # 0.1 x10^3/uL (0.0-0.7); EOS % 1 % (0-3); HEMATOCRIT 41.2 % (36.0-47.0); HEMOGLOBIN 14.3 g/dL (12.0-15.5); LYMPH # 3.1 x10^3/uL (1.0-4.8); LYMPH % 49 % (24-48); MEAN CORPUSCULAR HEMOGLOBIN 31 pg (25-35); MEAN CORPUSCULAR HGB CONC 35 g/dL (31-37); MEAN CORPUSCULAR VOLUME 90 fL (79-100); MONO # 0.4 x10^3/uL (0.0-1.1); MONO % 7 % (0-9); NEUT # 2.7 x10^3uL (1.8-7.7); NEUT % 42 % (31-73); PLATELET COUNT 239 x10^3/uL (140-400); RED BLOOD COUNT 4.59 x10^6/uL (3.50-5.40); RED CELL DISTRIBUTION WIDTH 13.2 % (11.5-14.5); WHITE BLOOD COUNT 6.3 x10^3/uL (4.0-11.0)
[2020-08-06 18:28] LABS: CALCIUM 8.2 mg/dL (8.5-10.1); CREATININE 0.8 mg/dL (0.6-1.0); GFR 91.5
[2020-08-06 18:34] LABS: BACTERIA,URINE 0 /HPF (0-FEW); BILIRUBIN,URINE NEG (NEG); CLARITY,URINE CLEAR; COLOR,URINE YELLOW; GLUCOSE,URINE NEG (NEG); NITRITE,URINE NEG (NEG); RBC,URINE 0 /HPF (0-2); SQUAMOUS EPITHELIAL CELL,UR FEW /LPF; UROBILINOGEN,URINE 0.2 mg/dL (0.2 mg/dL); WBC,URINE 0 /HPF (0-4)
[2020-08-06 18:34] LABS: ALBUMIN 3.6 g/dL (3.4-5.0); TOTAL BILIRUBIN 0.2 mg/dL (0.2-1.0); TOTAL PROTEIN 7.2 g/dL (6.4-8.2)
[2020-08-06] MEDS ORDERED: POTASSIUM CHLORIDE 20 MEQ TABLET.ER. PO ONE (18:45)
[2020-08-06] MEDS ORDERED: diphenhydrAMINE 50 MG/ML VIAL IVP ONE (18:45)
[2020-08-06 19:00] VITALS: BP 154/86
== END 2020-08-06 19:24 | disposition home or self-care (01) ==
LOC: ER 16:36
DX: R10.30 Lower abdominal pain, unspecified (principal); E11.9 Type 2 diabetes mellitus without complications; I10 Essential (primary) hypertension; Z90.89 Acquired absence of other organs; Z90.710 Acquired absence of both cervix and uterus; Z98.51 Tubal ligation status; Z90.721 Acquired absence of ovaries, unilateral; Z88.5 Allergy status to narcotic agent
CPT/HCPCS: 36415; 71045; 74176; 80053; 81001; 85025; 93005; 96361; 96374; 99285; J1885; J7030